=== PATIENT | male | born 1935 | race Caucasian/White ===

== ENCOUNTER 2018-01-01 01:22 | Inpatient (IN) | payer BC, MEDICARE ==
[~2018-01-01] VITALS: Ht 188 cm; Wt 85.7 kg
--- NOTE | 2018-01-01 01:25 | NUR ---
PT BBRA WITH C/O "SOB [id number]"; EXPIRATORY WHEEZES; BREATHING TX WET CHEMISTRY ANALYST." PT IS AAOX4. RESP EVEN AND NONE LABORED. SKIN PINK AND WARM. NO S/S OF ACUTE DISTRESS NOTED. VSS. WAITING MD FOR EVAL.
--- NOTE | 2018-01-01 01:25 | NUR ---
PT PLACED ON MONITOR AND POX. CALL LIGHT PLACED WITHIN REACH. PT'S FAMILY BEDSIDE
--- NOTE | 2018-01-01 02:00 | NUR ---
Patient is resting comfortably in bed with eyes closed. Easily aroused. VSS
[2018-01-01 02:46] LABS: BASOPHILS % (AUTO) 0.1 % (0.0-2.0); EOSINOPHILS # (AUTO) 0.2 /CMM (0.0-0.7); EOSINOPHILS % (AUTO) 1.2 % (0.0-6.0); HEMATOCRIT 50 % (39-51); HEMOGLOBIN 16.5 g/dL (13.5-17.5); LYMPHOCYTES # (AUTO) 0.6 /CMM (0.8-4.8); LYMPHOCYTES % (AUTO) 4.3 % (20.0-44.0); MEAN CORPUSCULAR HEMOGLOBIN 31 PG (26.0-33.0); MEAN CORPUSCULAR HGB CONC 33 g/dl (31.0-36.0); MEAN CORPUSCULAR VOLUME 93 fL (80-96); MONOCYTES # (AUTO) 0.1 /CMM (0.1-1.30); MONOCYTES % (AUTO) 0.9 % (2.0-12.0); NEUTROPHILS # (AUTO) 12.2 /CMM (1.8-8.9); NEUTROPHILS % (AUTO) 93.5 % (43.0-81.0); PLATELET COUNT (AUTO) 388 /CMM (150-450); RDW COEFFICIENT OF VARIATION 16.1 (11.5-15.0); RED BLOOD CELL COUNT(AUTO) 5.39 MIL/uL (4.5-6.0); WHITE BLOOD COUNT (AUTO) 13.1 K/uL (4.3-11.0)
--- NOTE | 2018-01-01 03:00 | NUR ---
Patient is resting comfortably in bed with eyes closed. Easily aroused. VSS
[2018-01-01 03:07] LABS: ALANINE AMINOTRANSFERASE 18 U/L (12-78); ALBUMIN 3.2 g/dL (3.4-5.0); ALKALINE PHOSPHATASE 72 U/L (46-116); ASPARTATE AMINOTRANSFERASE 16 U/L (15-37); BILIRUBIN,DIRECT 0.2 mg/dL (0.0-0.2); BILIRUBIN,TOTAL 1.1 mg/dL (0.2-1.0); CALCIUM, SERUM 8.8 mg/dL (8.5-10.1); CARBON DIOXIDE 27 mmol/L (21-32); CHLORIDE 108 mmol/L (98-107); CREATININE 0.9 mg/dL (0.6-1.3); GLUCOSE 118 mg/dL (74-106); MAGNESIUM 1.7 mg/dL (1.8-2.4); POTASSIUM 3.8 mmol/L (3.5-5.1); SODIUM SERUM 144 mmol/L (136-145); TOTAL PROTEIN, SERUM 6.1 g/dL (6.4-8.2); TROPONIN I < 0.017 ng/mL (0.00-0.056); UREA NITROGEN, BLOOD 17 mg/dL (7-18)
[2018-01-01 03:10] LABS: INR 1.12 (0.87-1.13)
[2018-01-01 03:17] LABS: BAND % (MANUAL) 10 % (0.0-5.0); EOSINOPHILS % (MANUAL) 1 % (0-4); LYMPHOCYTES % (MANUAL) 3 % (16-48); MONOCYTES % (MANUAL) 1 % (0-11.0); NEUTROPHILS % (MANUAL) 85 (42-76)
[2018-01-01 03:38] LABS: ABG BASE EXCESS 1.7 mmol/L; ABG OXYGEN SATURATION 94.8 % (92.0-98.5); ABG PCO2 34.7 mmHg (35.0-45.0); ABG PH 7.471 (7.350-7.450); ABG PO2 70.8 mmHg (75.0-100.0); AaDO2 203.4 mmHg; COHb 0.8 % (0.5-1.5); MetHb 0.5 % (0.0-1.5); O2Hb 93.6 % (94.0-97.0); SITE, ABG Right Brachial; VENT MODE, BG SIMPLE MASK
--- NOTE | 2018-01-01 03:55 | NUR ---
Patient is resting comfortably in bed with eyes closed. Easily aroused. VSS
[2018-01-01] MEDS ORDERED: CEFEPIME 1 GM in IV D5W 50 ML IV STA (04:31)
[2018-01-01] MEDS ORDERED: VANCOMYCIN 1 GM in IV NS 0.9% 250 ML IV STA (04:31)
--- NOTE | 2018-01-01 04:35 | NUR ---
PT ABLE TO GIVE URINE SPECIMEN, LAB CALLED FOR PICKUP
[2018-01-01] MEDS ORDERED: CEFEPIME 1 GM VIAL ONE (04:41)
[2018-01-01] MEDS ORDERED: VANCOMYCIN 1 GM VIAL ONE (04:41)
--- NOTE | 2018-01-01 05:05 | NUR ---
GAVE REPORT TO MACARIO VILLANUEVA FOR TRENT.
[2018-01-01] MEDS ORDERED: methylPREDNISolone SOD SUCC 125 MG/2ML VIAL IV ONE (05:30)
[2018-01-01 05:45] LABS: APPEARANCE,URINE CLEAR (CLEAR); BILIRUBIN,URINE NEGATIVE (NEGATIVE); BLOOD, URINE NEGATIVE Ery/uL (NEGATIVE); COLOR,URINE DARK YELLO (YELLOW); KETONES,URINE TRACE (NEGATIVE); LEUKOCYTE ESTERASE ,URINE NEGATIVE (NEGATIVE); NITRITE, URINE NEGATIVE (NEGATIVE); PH,URINE 5.5 (5.0-8.0); PROTEIN,URINE NEGATIVE (NEGATIVE); UGLUCOSE NEGATIVE (NEGATIVE); UROBILINOGEN,URINE 0.2 EU/dL (0.2)
[2018-01-01] MEDS ORDERED: methylPREDNISolone SOD SUCC 125 MG/2ML VIAL ONE (05:53)
[2018-01-01] MEDS ORDERED: Z GUARD REMEDY 2 OZ OINT TP PRN (06:00)
[2018-01-01] MEDS ORDERED: ACETAMINOPHEN 325 MG TABLET PO PRN (06:00)
[2018-01-01] MEDS ORDERED: CEFTRIAXONE 1 G in IV D5W 50 ML IV SCH (06:00)
[2018-01-01] MEDS ORDERED: HYDROCODONE/APAP 5/325MG 1 EACH TABLET PO PRN (06:00)
[2018-01-01] MEDS ORDERED: MAGNESIUM HYDROXIDE 30 ML UDC PO PRN (06:00)
[2018-01-01] MEDS ORDERED: ONDANSETRON HCL/PF 4 MG/2 ML VIAL IVP PRN (06:00)
[2018-01-01] MEDS ORDERED: AZITHROMYCIN 500 MG in IV D5W 250 ML IV SCH (06:00)
[2018-01-01] MEDS ORDERED: MAG HYDROX/AL HYDROX/SIMETH 30 ML UDC PO PRN (06:00)
--- NOTE | 2018-01-01 06:08 | NUR ---
GAVE REPORT TO ELIZADaniella GUILLAUME FOR TRENT.
[2018-01-01 06:30] VITALS: BP 131/63
--- NOTE | 2018-01-01 06:30 | NUR ---
RN ADMITTING ELIZA NOTE ADMITTED 82 YR OLD MALE, FROM ER REPORT GIVEN BY ANGIE. PT FROM HOME, C/C SOB X 15 MIN AND WHEEZING, ADMIT DIAGNOSIS PNA. PT AOX4 ON SIMPLE MASK @ 4L SAT @ 95%, DENIES ANY PAIN, AMBULATORY, NO SKIN ISSUES, WITH RAC 18G, ADMITTING ORDERS ENTERED BY LORENA Hall MERCHANDISING REPRESENTATIVE TRANSPORT TECHNICIAN, ASSESSMENT TO BE DONE BY AM SHIFT RN, ALL SAFETY MEASURES UNDER TAKEN CL WR. WILL ENDORSE FOR TRENT.
[2018-01-01 06:56] VITALS: BP 113/60
[2018-01-01 07:23] LABS: BACTERIA,URINE Few /HPF (None Seen); CALCIUM OXALATE CRYSTALS,UR Few /HPF (None Seen); RBC,URINE 0-2 /HPF (0-2); SQUAMOUS EPITHELIAL CELL,UR Few /HPF (None Seen); WBC,URINE 0-2 /HPF (0-3)
[2018-01-01 07:24] LABS: MUCUS,URINE Moderate /LPF (None Seen)
[2018-01-01] MEDS ORDERED: LATA2.5D7 EACHEYE (07:57)
[2018-01-01] MEDS ORDERED: TAMS-12 PO (07:57)
[2018-01-01] MEDS ORDERED: APIX5TAB PO (07:57)
[2018-01-01] MEDS ORDERED: LOSA100T15 PO (07:57)
[2018-01-01] MEDS ORDERED: FINA5TAB3 PO (07:57)
[2018-01-01] MEDS ORDERED: LOVA40TA2 PO (07:57)
[2018-01-01] MEDS ORDERED: HYDR500C2 PO (07:57)
[2018-01-01 08:00] VITALS: BP 112/62
[2018-01-01] MEDS: ALBUTEROL FS 2.5 MG/0.5 ML VIAL.NEB NEB SCH ×2 (08:03→13:07)
[2018-01-01] MEDS: IPRATROPIUM NEB FS 0.5 MG/2.5 ML AMPUL.NEB NEB SCH ×6 (08:04→22:59)
--- NOTE | 2018-01-01 08:07 | NUR ---
TD RN NOTES RECEIVED PT ON BED SLEEPING. ALERT ORIENTED X4. ON FACE MASK 4L SATURATING WELL. ON TELE MONITOR SR 77. IV ACCESS RA #18 RUNNING WELL. HEAD OF BED ELEVATED SIDE RAILS UP. CALL LIGHT WITHIN REACH. WILL CONTINUE TO MONITOR PT CLOSELY.
--- NOTE | 2018-01-01 08:50 | NUR ---
TD RN NOTES PHARMACY FOLLOWED UP REGARDING PATIENTS ANTIBIOTICS
[2018-01-01] MEDS: methylPREDNISolone SOD SUCC 40 MG/ML VIAL IV SCH ×3 (09:34→16:24)
[2018-01-01] MEDS: CEFTRIAXONE 1 G in IV D5W 50 ML IV SCH (10:09)
[2018-01-01] MEDS: AZITHROMYCIN 500 MG in IV D5W 250 ML IV SCH (10:59)
--- NOTE | 2018-01-01 11:41 | NUR ---
TD RN NOTES CALLED DR RODRIGUEZ FOR HOME MED RECON.
[2018-01-01 12:00] VITALS: BP 110/60
--- NOTE | 2018-01-01 12:15 | NUR ---
TD RN NOTES DR MOSQUEDA SEEN THE PT. NO FURTHER ORDERS
[2018-01-01] MEDS: Magnesium 1GM/D5W 100ML PREMIX 100 ML IV SCH ×2 (12:49→13:39)
[2018-01-01] MEDS ORDERED: ALBUTEROL HALF STRENGTH 1.25 MG/3 ML VIAL.NEB NEB SCH (13:00)
[2018-01-01] MEDS: ENOXAPARIN SODIUM 80 MG/0.8 ML DISP.SYRIN SQ SCH (13:40)
[2018-01-01] MEDS ORDERED: IOHEXOL-350 100 ML VIAL IV ONE (15:04)
[2018-01-01] MEDS ORDERED: CT SWABBABLE VALVE TRANS SET 1 EA INFUS.SET MC ONE (15:04)
[2018-01-01] MEDS ORDERED: IV NS 0.9% 100 ML IV ONE (15:04)
[2018-01-01] MEDS: ALBUTEROL HALF STRENGTH 1.25 MG/3 ML VIAL.NEB NEB SCH ×3 (15:26→22:59)
[2018-01-01 16:00] VITALS: BP 135/69
--- NOTE | 2018-01-01 18:44 | NUR ---
TD RN NOTES NO ACUTE CHANGES NOTED DURING THE SHIFT. PROVIDED COMFORT AND SAFETY. HEAD OF BED ELEVATED. DUE MEDS GIVEN.
[2018-01-01 20:00] VITALS: BP 129/73
--- NOTE | 2018-01-01 20:22 | NUR ---
RN NOTES RECEIVED PATIENT AWAKE IN BED WITH NO RESPIRATORY DISTRESS OR SHORTNESS OF BREATH. BREATHING EVEN AND UNLABORED. ALERT AND ORIENTED, VERBALLY ABLE TO COMMUNICATE NEEDS. NO COMPLAINT OF PAIN OR DISCOMFORT. ON O2 AT 6LPM VIA NC WELL TOLERATED. AMBULATORY. VITAL SIGNS WNL. KEPT CLEAN AND DRY. WILL CONTINUE TO MONITOR.
[2018-01-01] MEDS: LATANOPROST EYE DROP 0.005% 2.5 ML BOTTLE EACHEYE SCH (22:12)
[2018-01-01] MEDS: ATORVASTATIN 10 MG TABLET PO SCH (22:12)
[2018-01-02] VITALS: BP 119/54
[2018-01-02] MEDS: ENOXAPARIN SODIUM 80 MG/0.8 ML DISP.SYRIN SQ SCH ×2 (01:27→12:06)
[2018-01-02] MEDS: ALBUTEROL HALF STRENGTH 1.25 MG/3 ML VIAL.NEB NEB SCH ×6 (03:35→22:47)
[2018-01-02] MEDS: IPRATROPIUM NEB FS 0.5 MG/2.5 ML AMPUL.NEB NEB SCH ×6 (03:35→22:47)
[2018-01-02 04:00] VITALS: BP 117/64
[2018-01-02 06:34] LABS: HEMATOCRIT 49 % (39-51); HEMOGLOBIN 16.1 g/dL (13.5-17.5); LYMPHOCYTES # (AUTO) 0.4 /CMM (0.8-4.8); MEAN CORPUSCULAR HEMOGLOBIN 31 PG (26.0-33.0); MEAN CORPUSCULAR HGB CONC 33 g/dl (31.0-36.0); MEAN CORPUSCULAR VOLUME 93 fL (80-96); MONOCYTES # (AUTO) 0.3 /CMM (0.1-1.30); MONOCYTES % (AUTO) 1.5 % (2.0-12.0); NEUTROPHILS # (AUTO) 18.6 /CMM (1.8-8.9); NEUTROPHILS % (AUTO) 96.5 % (43.0-81.0); PLATELET COUNT (AUTO) 387 /CMM (150-450); RDW COEFFICIENT OF VARIATION 16.2 (11.5-15.0); RED BLOOD CELL COUNT(AUTO) 5.25 MIL/uL (4.5-6.0); WHITE BLOOD COUNT (AUTO) 19.2 K/uL (4.3-11.0)
[2018-01-02 06:53] LABS: CHOLESTEROL 123 mg/dL (<200); HDL CHOLESTEROL 50 mg/dL (40-60); LDL 70 mg/dL (0-99); THYROID STIMULATING HORMONE 0.371 uIU/mL (0.358-3.74); TRIGLYCERIDES 37 mg/dL (30-150)
[2018-01-02 06:58] LABS: CALCIUM, SERUM 8.8 mg/dL (8.5-10.1); CARBON DIOXIDE 32 mmol/L (21-32); CHLORIDE 108 mmol/L (98-107); GLUCOSE 148 mg/dL (74-106); MAGNESIUM 2.2 mg/dL (1.8-2.4); PHOSPHORUS 3.5 mg/dL (2.5-4.9); POTASSIUM 4.2 mmol/L (3.5-5.1); SODIUM SERUM 142 mmol/L (136-145); UREA NITROGEN, BLOOD 19 mg/dL (7-18)
--- NOTE | 2018-01-02 07:38 | NUR ---
CATRACHITA RN NOTES RECEIVED PATIENT AWAKE IN BED WITH NO RESPIRATORY DISTRESS OR SHORTNESS OF BREATH. BREATHING EVEN AND UNLABORED. ALERT AND ORIENTED, VERBALLY ABLE TO COMMUNICATE NEEDS. NO COMPLAINT OF PAIN OR DISCOMFORT. ON O2 AT 6LPM VIA NC WELL TOLERATED. SIGNS WNL. KEPT CLEAN AND DRY. WILL CONTINUE TO MONITOR. ON TELE MONITOR SR . LT UPPER ARM MID LINE IN PLACE , RT FA HL INTACT , BED IN LOWEST AND LOCKED POSITION , PLAN OF CARE DISCUSSED WITH PATIENT
[2018-01-02 08:00] VITALS: BP 149/79
[2018-01-02] MEDS: TAMSULOSIN 0.4 MG CAP.SR.24H PO SCH (08:05)
[2018-01-02] MEDS: methylPREDNISolone SOD SUCC 40 MG/ML VIAL IV SCH ×3 (08:05→16:26)
[2018-01-02] MEDS: LOSARTAN POTASSIUM 50 MG TABLET PO SCH (08:06)
[2018-01-02] MEDS: FINASTERIDE (5 MG) 5 MG TABLET PO SCH (08:06)
[2018-01-02] MEDS: HYDROXYUREA 500 MG CAPSULE PO SCH (08:06)
--- NOTE | 2018-01-02 08:55 | NUR ---
ELIZA RN NOTE CHEST X RAY DONE , NOT IN ACUTE DISTRESS, WILL CONT TO MONITOR CLOSELY
[2018-01-02] MEDS: CEFTRIAXONE 1 G in IV D5W 50 ML IV SCH (09:16)
[2018-01-02 10:48] LABS: LYMPHOCYTES % (MANUAL) 3 % (16-48); MONOCYTES % (MANUAL) 2 % (0-11.0); NEUTROPHILS % (MANUAL) 95 (42-76)
--- NOTE | 2018-01-02 10:54 | NUR ---
ELIZA RN NOTE ON BREATHING TX ORDERED
[2018-01-02] MEDS: AZITHROMYCIN 500 MG in IV D5W 250 ML IV SCH (11:10)
[2018-01-02 12:00] VITALS: BP 156/72
--- NOTE | 2018-01-02 12:16 | NUR ---
ATHLETIC EVENTS SCORER NOTE TRANSFERRED TO ROOM 108 PER CHARGE NURSE ORDER
--- NOTE | 2018-01-02 14:31 | NUR ---
CLINICAL BIOCHEMIST NOTE RESTING COMFORTABLY IN BED, ALL NEEDS ATTENDED, NOT IN ACUTE DISTRESS, WILL CONT TO MONITOR CLOSELY
[2018-01-02 16:00] VITALS: BP 152/81
--- NOTE | 2018-01-02 17:53 | NUR ---
LANDFILL GRADER NOTE DR RODRIGUEZ AT BEDSIDE , SEEING PATIENT , ALL NEEDS ATTENDED, WILL CONT TO MONITOR CLOSELY
--- NOTE | 2018-01-02 18:38 | NUR ---
4TH GRADE TEACHER NOTE HAVING DINNER, DAUGHTER AT BEDSIDE , ALL NEEDS ATTENDED, WILL CONT TO MONITOR CLOSELY
--- NOTE | 2018-01-02 19:30 | NUR ---
RN OPENING NOTES RECEIVED REPORT FROM DAYSHIFT RN. FOUND Pt AWAKE, RESTING IN BED. NO S/S OF ACUTE DISTRESS OR SOB NOTED. Pt IS A/OX4, VERBAL, ABLE TO MAKE NEEDS KNOWN. Pt C/O NO PAIN AT THIS TIME. IV ACCESS ON DAVID MIDLINE & RA #18G, SL. SAFETY MEASURES IN PLACE. BED LOW, LOCKED, HOB ELEVATED SIDE RAILS UP, CALL LIGHT AND BEDSIDE TABLE WITHIN REACH. WILL CONTINUE TO MONITOR Pt THROUGHOUT THE NIGHT FOR SAFETY.
[2018-01-02 20:00] VITALS: BP 167/85
[2018-01-02] MEDS: LATANOPROST EYE DROP 0.005% 2.5 ML BOTTLE EACHEYE SCH (21:52)
[2018-01-02] MEDS: ATORVASTATIN 10 MG TABLET PO SCH (21:52)
[2018-01-03] VITALS (7 sets, daily range): BP systolic 138–160; BP diastolic 71–83
[2018-01-03] MEDS: ENOXAPARIN SODIUM 80 MG/0.8 ML DISP.SYRIN SQ SCH (00:25)
[2018-01-03] MEDS: IPRATROPIUM NEB FS 0.5 MG/2.5 ML AMPUL.NEB NEB SCH ×6 (02:34→23:38)
[2018-01-03] MEDS: ALBUTEROL HALF STRENGTH 1.25 MG/3 ML VIAL.NEB NEB SCH ×6 (02:34→23:38)
--- NOTE | 2018-01-03 06:35 | NUR ---
RN CLOSING NOTES NO SIGNIFICANT CHANGES IN Pt's CONDITION. Pt REMAINS STABLE AT THIS TIME. NO S/S OF ACUTE DISTRESS OR SOB NOTED. TELE READING SR. ALL NEEDS MET AND ATTENDED TO. SAFETY MEASURES IN PLACE. WILL ENDORSE TO DAYSHIFT RN FOR Pt's TRENT.
[2018-01-03 06:53] LABS: BASOPHILS % (AUTO) 0.2 % (0.0-2.0); HEMATOCRIT 49 % (39-51); HEMOGLOBIN 16.1 g/dL (13.5-17.5); LYMPHOCYTES # (AUTO) 0.5 /CMM (0.8-4.8); LYMPHOCYTES % (AUTO) 2.7 % (20.0-44.0); MEAN CORPUSCULAR HEMOGLOBIN 31 PG (26.0-33.0); MEAN CORPUSCULAR HGB CONC 33 g/dl (31.0-36.0); MEAN CORPUSCULAR VOLUME 93 fL (80-96); MONOCYTES # (AUTO) 0.4 /CMM (0.1-1.30); MONOCYTES % (AUTO) 2.3 % (2.0-12.0); NEUTROPHILS # (AUTO) 18.4 /CMM (1.8-8.9); NEUTROPHILS % (AUTO) 94.8 % (43.0-81.0); PLATELET COUNT (AUTO) 390 /CMM (150-450); RED BLOOD CELL COUNT(AUTO) 5.27 MIL/uL (4.5-6.0); WHITE BLOOD COUNT (AUTO) 19.4 K/uL (4.3-11.0)
--- NOTE | 2018-01-03 07:28 | NUR ---
MS/RN Patient received Patient received from night coordinator. A/X X4, appears in no distress, currently receiving HHN, saturation 95%. Denies any pain or discomfort. Call light within reach, side rails X2 in upright position, brakes locked. Will continue to monitor and ensure safety.
[2018-01-03 07:47] LABS: CALCIUM, SERUM 8.5 mg/dL (8.5-10.1); CARBON DIOXIDE 27 mmol/L (21-32); CHLORIDE 109 mmol/L (98-107); CREATININE 0.9 mg/dL (0.6-1.3); GLUCOSE 116 mg/dL (74-106); MAGNESIUM 2.1 mg/dL (1.8-2.4); PHOSPHORUS 3.8 mg/dL (2.5-4.9); POTASSIUM 4.5 mmol/L (3.5-5.1); SODIUM SERUM 143 mmol/L (136-145); UREA NITROGEN, BLOOD 22 mg/dL (7-18)
[2018-01-03] MEDS: HYDROXYUREA 500 MG CAPSULE PO SCH (08:05)
[2018-01-03] MEDS: FINASTERIDE (5 MG) 5 MG TABLET PO SCH (08:05)
[2018-01-03] MEDS: TAMSULOSIN 0.4 MG CAP.SR.24H PO SCH (08:05)
[2018-01-03] MEDS: methylPREDNISolone SOD SUCC 40 MG/ML VIAL IV SCH ×3 (08:06→16:34)
[2018-01-03] MEDS: LOSARTAN POTASSIUM 50 MG TABLET PO SCH (08:07)
[2018-01-03 08:58] LABS: LYMPHOCYTES % (MANUAL) 3 % (16-48); MONOCYTES % (MANUAL) 2 % (0-11.0); NEUTROPHILS % (MANUAL) 95 (42-76)
--- NOTE | 2018-01-03 09:00 | NUR ---
MS/RN Medications Medications administered as ordered, no problems swallowing.
--- NOTE | 2018-01-03 09:27 | NUR ---
MS/RN Labs Morning labs reviewed: -WBC 19.4
[2018-01-03] MEDS: CEFTRIAXONE 1 G in IV D5W 50 ML IV SCH (10:20)
--- NOTE | 2018-01-03 11:05 | NUR ---
MS/RN S/B Dr Cox Seen by Dr Cox - oxygen to be titrated, labs ordered for tomorrow.
[2018-01-03] MEDS: AZITHROMYCIN 500 MG in IV D5W 250 ML IV SCH (11:17)
[2018-01-03] MEDS: APIXABAN 5 MG TABLET PO SCH ×2 (11:33→16:34)
--- NOTE | 2018-01-03 14:47 | NUR ---
MS/RN S/B Dr Rueda Seen by Dr Rueda - titrate oxygen when able, encourage to ambulate.
--- NOTE | 2018-01-03 17:26 | NUR ---
MS/RN Rounds Patient kept up to date with plan of care. Time allowed to answer all questions and address all concerns.
--- NOTE | 2018-01-03 18:18 | NUR ---
MS/RN End note No changes in care at this time, all needs attended. No shortness of breath, saturation has remained greater than 94% throughout the shift. All needs attended, will endorse to shift supervisor melting.
--- NOTE | 2018-01-03 20:20 | NUR ---
TELE/RN NOTES RECEIVED REPORT FROM KAHLIL GOLDBERG. RECEIVED PT. LYING IN BED RESTING. PT. IS EASILY AROUSABLE TO NAME. AWAKE, ALERT AND ORIENTED X4. BREATHING EVEN AND UNLABORED ON 4LPM O2 VIA NC. NO SOB, RESPIRATORY DISTRESS OR COMPLAINTS OF PAIN NOTED AT THIS TIME. PT. WITH EXTERNAL PRODUCTION SUPPORT CONSULTANT PRESENT AND INTACT. CURRENT RHYTHM = SINUS RHYTHM HR 75. PT. WITH LEFT HAND 20 GAUGE IV SALINE LOCK PRESENT, PATENT AND INTACT. PT. WITH RIGHT FOREARM IV SALINE LOCK PRESENT, PATENT AND INTACT. BED LOCKED AND IN LOWEST POSITION, SIDE RAILS UP X2, CALL LIGHT WITHIN REACH, WILL CONTINUE TO MONITOR.
[2018-01-03] MEDS: ATORVASTATIN 10 MG TABLET PO SCH (22:12)
[2018-01-03] MEDS: LATANOPROST EYE DROP 0.005% 2.5 ML BOTTLE EACHEYE SCH (22:17)
[2018-01-04] VITALS (7 sets, daily range): BP systolic 133–169; BP diastolic 79–89
[2018-01-04] MEDS: ALBUTEROL HALF STRENGTH 1.25 MG/3 ML VIAL.NEB NEB SCH ×6 (03:31→23:48)
[2018-01-04] MEDS: IPRATROPIUM NEB FS 0.5 MG/2.5 ML AMPUL.NEB NEB SCH ×6 (03:31→23:48)
[2018-01-04 06:44] LABS: CALCIUM, SERUM 8.6 mg/dL (8.5-10.1); CARBON DIOXIDE 29 mmol/L (21-32); CHLORIDE 108 mmol/L (98-107); CREATININE 0.9 mg/dL (0.6-1.3); GLUCOSE 121 mg/dL (74-106); MAGNESIUM 1.9 mg/dL (1.8-2.4); PHOSPHORUS 3.7 mg/dL (2.5-4.9); POTASSIUM 4.3 mmol/L (3.5-5.1); SODIUM SERUM 144 mmol/L (136-145); UREA NITROGEN, BLOOD 23 mg/dL (7-18)
--- NOTE | 2018-01-04 08:00 | NUR ---
RN NOTE:(INITIAL) PATIENT RECEIVED ALERT AWAKE ORIENTED X4. ON 4LPM OXYGEN, DENIES SHORTNESS OF BREATH. ON TELE MONITOR SINUS RHYTHM. DENIES CHEST PAIN & DISCOMFORT. IV SITE INTACT, SALINE LOCK. SAFETY MEASURES OBSERVED. CALL LIGHT WITHIN REACH. WILL CONTINUE TO MONITOR.
[2018-01-04] MEDS: HYDROXYUREA 500 MG CAPSULE PO SCH (08:29)
[2018-01-04] MEDS: FINASTERIDE (5 MG) 5 MG TABLET PO SCH (08:29)
[2018-01-04] MEDS: methylPREDNISolone SOD SUCC 40 MG/ML VIAL IV SCH ×3 (08:29→17:08)
[2018-01-04] MEDS: TAMSULOSIN 0.4 MG CAP.SR.24H PO SCH (08:30)
[2018-01-04] MEDS: APIXABAN 5 MG TABLET PO SCH ×2 (08:30→17:08)
[2018-01-04] MEDS: LOSARTAN POTASSIUM 50 MG TABLET PO SCH (08:31)
[2018-01-04] MEDS: CEFTRIAXONE 1 G in IV D5W 50 ML IV SCH (09:24)
[2018-01-04 10:26] LABS: ABG BASE EXCESS 1.2 mmol/L; ABG OXYGEN SATURATION 92.1 % (92.0-98.5); ABG PH 7.438 (7.350-7.450); ABG PO2 61.8 mmHg (75.0-100.0); COHb 0.4 % (0.5-1.5); MetHb 0.5 % (0.0-1.5); O2Hb 91.3 % (94.0-97.0); SITE, ABG Right Radial; VENT MODE, BG n/c 2 L
--- NOTE | 2018-01-04 10:30 | NUR ---
RN NOTE: 1000:SEEN BY DR. MOSQUEDA AT BEDSIDE, RECEIVED ORDERS TO TITRATE O2 TO 2LPM, MONITOR SPO2. 10:25: RECEIVED ABG RESULTS PO2 61.8MMHG ON 2LPM O2 VIA NC. , RELAYED RESULTS TO DR. MOSQUEDA, NO NEW ORDERS RECEIVED. CONTINUE TO ON 2LPM O2. CONTINUE TO MONITOR CLOSELY.
[2018-01-04] MEDS: AZITHROMYCIN 500 MG in IV D5W 250 ML IV SCH (11:19)
--- NOTE | 2018-01-04 16:06 | NUR ---
RN NOTE: (SBP >160) JESSICA N.P. AWARE ABOUT SBP REMAINS >160 DURING SHIFT, NO NEW ORDERS. CONTINUE TO MONITOR.
--- NOTE | 2018-01-04 19:40 | NUR ---
REGISTER IN CHANCERY OPENING NOTES RECEIVED PT IN BED AWAKE, ALERT, VERBALLY RESPONSIVE. ON O2 VIA N/C AT 2L/MIN, RESPIRATIONS EVEN, UNLABORED, NO APPARENT DISTRESS NOTED. SR 84. DENIES ANY PAIN OR DISCOMFORT AT THIS TIME. CALL LIGHT WITHIN REACH. ATTENDED ALL NEEDS WILL CONTINUE TO MONITOR ACCORDINGLY.
[2018-01-04] MEDS: ATORVASTATIN 10 MG TABLET PO SCH (21:12)
[2018-01-04] MEDS: LATANOPROST EYE DROP 0.005% 2.5 ML BOTTLE EACHEYE SCH (21:13)
[2018-01-05] VITALS (8 sets, daily range): BP systolic 124–150; BP diastolic 64–84
[2018-01-05] MEDS: IPRATROPIUM NEB FS 0.5 MG/2.5 ML AMPUL.NEB NEB SCH ×6 (03:18→23:11)
[2018-01-05] MEDS: ALBUTEROL HALF STRENGTH 1.25 MG/3 ML VIAL.NEB NEB SCH ×6 (03:18→23:11)
--- NOTE | 2018-01-05 06:57 | NUR ---
DRIVER LICENSE REVIEWING OFFICER CLOSING NOTES PT IN BED, RESTING COMFORTABLY, ON O2 VIA N/C, RESPIRATIONS EVEN, UNLABORED. CALL LIGHT WITHIN REACH. DENIES ANY PAIN OR DISCOMFORT.ATTENDED ALL NEEDS.WILL CONTINUE TO MONITOR ACCORDINGLY.
[2018-01-05 07:01] LABS: HEMATOCRIT 50 % (39-51); HEMOGLOBIN 16.7 g/dL (13.5-17.5); LYMPHOCYTES # (AUTO) 0.4 /CMM (0.8-4.8); LYMPHOCYTES % (AUTO) 2.4 % (20.0-44.0); MEAN CORPUSCULAR HEMOGLOBIN 31 PG (26.0-33.0); MEAN CORPUSCULAR HGB CONC 33 g/dl (31.0-36.0); MEAN CORPUSCULAR VOLUME 94 fL (80-96); MONOCYTES # (AUTO) 0.3 /CMM (0.1-1.30); MONOCYTES % (AUTO) 2.1 % (2.0-12.0); NEUTROPHILS # (AUTO) 14.5 /CMM (1.8-8.9); NEUTROPHILS % (AUTO) 95.5 % (43.0-81.0); PLATELET COUNT (AUTO) 340 /CMM (150-450); RDW COEFFICIENT OF VARIATION 16.8 (11.5-15.0); RED BLOOD CELL COUNT(AUTO) 5.34 MIL/uL (4.5-6.0); WHITE BLOOD COUNT (AUTO) 15.2 K/uL (4.3-11.0)
[2018-01-05 07:23] LABS: CALCIUM, SERUM 8.8 mg/dL (8.5-10.1); CARBON DIOXIDE 29 mmol/L (21-32); CHLORIDE 109 mmol/L (98-107); CREATININE 0.9 mg/dL (0.6-1.3); GLUCOSE 124 mg/dL (74-106); POTASSIUM 4.1 mmol/L (3.5-5.1); SODIUM SERUM 145 mmol/L (136-145); UREA NITROGEN, BLOOD 28 mg/dL (7-18)
--- NOTE | 2018-01-05 07:30 | NUR ---
WEBSITE ADMIN NOTES RECEIVED PT ON BED SLEEPING. ALERT ORIENTED X4. ON NASAL CANNULA 2LPM SATURATING WELL. NO SIGN OF RESPI DISTRESS. ON TELE MONITOR SR 60. IV ACCESS ON LEFT HAND #20 SL NO REDNESS OR SWELLING. HEAD OF BED ELEVATED. SIDE RAILS UP. CALL LIGHT WITHIN REACH. WILL MONITOR PT CLOSELY.
[2018-01-05] MEDS: methylPREDNISolone SOD SUCC 40 MG/ML VIAL IV SCH ×2 (09:03→16:04)
[2018-01-05] MEDS: TAMSULOSIN 0.4 MG CAP.SR.24H PO SCH (09:04)
[2018-01-05] MEDS: FINASTERIDE (5 MG) 5 MG TABLET PO SCH (09:04)
[2018-01-05] MEDS: CEFTRIAXONE 1 G in IV D5W 50 ML IV SCH (09:04)
[2018-01-05] MEDS: LOSARTAN POTASSIUM 50 MG TABLET PO SCH (09:04)
[2018-01-05] MEDS: APIXABAN 5 MG TABLET PO SCH ×2 (09:04→16:04)
[2018-01-05] MEDS: HYDROXYUREA 500 MG CAPSULE PO SCH (09:04)
[2018-01-05 09:22] LABS: LYMPHOCYTES % (MANUAL) 2 % (16-48); MONOCYTES % (MANUAL) 5 % (0-11.0); NEUTROPHILS % (MANUAL) 93 (42-76)
[2018-01-05] MEDS: AZITHROMYCIN 500 MG in IV D5W 250 ML IV SCH (10:14)
--- NOTE | 2018-01-05 18:19 | NUR ---
MS RN NOTES NO ACUTE CHANGES NOTED DURING SHIFT. DUE MEDS GIVEN. PROVIDED COMFORT AND SAFETY. WILL ENDORSE TO THE PM NURSE FOR TRENT.
[2018-01-05] MEDS: LATANOPROST EYE DROP 0.005% 2.5 ML BOTTLE EACHEYE SCH (21:12)
[2018-01-05] MEDS: ATORVASTATIN 10 MG TABLET PO SCH (21:12)
[2018-01-06] VITALS: BP 124/64
[2018-01-06 00:35] VITALS: BP 139/64
[2018-01-06] MEDS: IPRATROPIUM NEB FS 0.5 MG/2.5 ML AMPUL.NEB NEB SCH ×4 (03:16→15:23)
[2018-01-06] MEDS: ALBUTEROL HALF STRENGTH 1.25 MG/3 ML VIAL.NEB NEB SCH ×4 (03:17→15:23)
[2018-01-06 04:00] VITALS: BP 157/82
--- NOTE | 2018-01-06 06:16 | NUR ---
MS RN CLOSING NOTES PT IN BED, ALERT ET ORIENTED. RESPIRATIONS EVEN ET UNLABORED. VITAL SIGNS TABLE, AFEBRILE..RESTING COMFORTABLY, NO APPARENT DISTRESS NOTED. WITH 2 UV HEPLOCK. ADMINISTERED ALL MEDS ORDERED. DENIES PAIN OR DISCOMFORT THE ENTIRE SHIFT. CALL LIGHT WITHIN REACH. KEPT CLEAN AND COMFORTABLE, NEEDS ALL ATTENDED. WILL ENDORSE ACCORDINGLY FOR CONTINUITY OF CARE.
[2018-01-06 08:00] VITALS: BP 170/85
[2018-01-06] MEDS: TAMSULOSIN 0.4 MG CAP.SR.24H PO SCH (08:27)
[2018-01-06] MEDS: HYDROXYUREA 500 MG CAPSULE PO SCH (08:27)
[2018-01-06] MEDS: LOSARTAN POTASSIUM 50 MG TABLET PO SCH (08:27)
[2018-01-06] MEDS: APIXABAN 5 MG TABLET PO SCH (08:28)
[2018-01-06] MEDS: FINASTERIDE (5 MG) 5 MG TABLET PO SCH (08:28)
[2018-01-06] MEDS ORDERED: methylPREDNISolone SOD SUCC 40 MG/ML VIAL IV SCH (09:00)
[2018-01-06] MEDS: CEFTRIAXONE 1 G in IV D5W 50 ML IV SCH (10:17)
[2018-01-06] MEDS: AZITHROMYCIN 500 MG in IV D5W 250 ML IV SCH (11:53)
[2018-01-06 16:00] VITALS: BP 145/85
--- NOTE | 2018-01-06 17:07 | NUR ---
inspector eyeglass frames note rn reviewed discharge paperwork with patient and daughter , rn explained f/u appointments with pcp and bath attendant md childs, patient and family verbalized understanding rn attempted to call in prescriptions to [facility]. rn awaiting authorization from pharmacy patient sent with hard copys of prescription. patient bilateral wrist iv removed without isues , no sob noted at this time patient, discharged without issues
== END 2018-01-06 17:34 | disposition home or self-care (01) | DRG 840 ==
LOC: ER 01:27 → TELE 03:12 → TELE-TD 06:26 → TELE1 01-02 11:50 → MEDSG1 01-05 10:08
PROVIDERS: ADMIT Nurse Practitioner Acute Care; ATTEND Nurse Practitioner Acute Care
DX: C94.6 Myelodysplastic disease, not elsewhere classified (principal); I26.99 Other pulmonary embolism without acute cor pulmonale; J96.21 Acute and chronic respiratory failure with hypoxia; E44.0 Moderate protein-calorie malnutrition; Z92.21 Personal history of antineoplastic chemotherapy; Z87.891 Personal history of nicotine dependence; Z86.718 Personal history of other venous thrombosis and embolism; Z86.711 Personal history of pulmonary embolism; Z85.51 Personal history of malignant neoplasm of bladder; Z79.01 Long term (current) use of anticoagulants; Z79.899 Other long term (current) drug therapy; T38.0X5A Adverse effect of glucocorticoids and synthetic analogues, initial encounter; Y92.009 Unspecified place in unspecified non-institutional (private) residence as the place of occurrence of the external cause; K21.9 Gastro-esophageal reflux disease without esophagitis; N40.0 Benign prostatic hyperplasia without lower urinary tract symptoms; K80.20 Calculus of gallbladder without cholecystitis without obstruction; E78.5 Hyperlipidemia, unspecified; E83.42 Hypomagnesemia; I10 Essential (primary) hypertension; I25.10 Atherosclerotic heart disease of native coronary artery without angina pectoris; J43.9 Emphysema, unspecified; I70.0 Atherosclerosis of aorta; J20.9 Acute bronchitis, unspecified
CPT/HCPCS: 36415; 36600; 71045-TC; 80048-TC; 80061-TC; 80076-TC; 81000-TC; 82803-TC; 83605-TC; 83735-TC; 84100-TC; 84443-TC; 84484-TC; 85025-TC; 85730-TC; 87040-TC; 87081-TC; 87086-TC; 93307-TC; 93970-TC; 94762-TC; 94799-TC; A4606; J0456; J0692; J0696; J1650; J2920; J2930; J3370; J3475; J7030; J7050; J7060; Q9967; Z7610

== ENCOUNTER 2019-02-26 22:54 | Inpatient (IN) | payer BC, MEDICARE ==
[2019-02-25 04:00] VITALS: BP 96/44
[~2019-02-26] VITALS: Ht 172.7 cm; Wt 88.0 kg
[2019-02-26 04:00] VITALS: BP 96/44
[~2019-02-26 22:54] MED LIST: APIX5TAB PO; FINA5TAB3 PO; HYDR500C2 PO; LATA2.5D7 EACHEYE; LOSA100T31 PO; LOVA40TA2 PO; TAMS-12 PO
--- NOTE | 2019-02-26 23:02 | NUR ---
PT MILES FROM HOME C/O SOB X1 HR. PT REC'D BREATHING TREATMENT EN ROUTE, MILD RELIEF. O2 SAT 88% ROOM AIR, PLACED ON 4L NC O2 SAT 94%. PT AAOX4. NOTED TACHYCARDIA, MD AWARE. SKIN WARM AND INTACT. NO ACUTE DISTRESS NOTED AT THIS TIME. PLACED IN GOWN AND ON CONTINUOUS FREIGHT WEIGHER AND PULSE OX. WILL CONTINUE TO MONITOR.
--- NOTE | 2019-02-26 23:16 | NUR ---
MD AT BEDSIDE FOR EVALUATION
[2019-02-26] MEDS ORDERED: IV NS 0.9% 500 ML BAG IV ONE (23:30)
--- NOTE | 2019-02-26 23:36 | NUR ---
RADIOLOGY AT BEDSIDE FOR CXR
--- NOTE | 2019-02-26 23:37 | NUR ---
Alfred leung in [facility] - 02/26/19 at 2354 by ELICEO RADIOLOGY AT BEDSIDE FOR CXR
[2019-02-26 23:41] LABS: BASOPHILS % (AUTO) 0.4 % (0.0-2.0); HEMATOCRIT 50 % (39-51); HEMOGLOBIN 16.2 g/dL (13.5-17.5); LYMPHOCYTES # (AUTO) 0.8 /CMM (0.8-4.8); LYMPHOCYTES % (AUTO) 7.4 % (20.0-44.0); MEAN CORPUSCULAR HGB CONC 33 g/dl (31.0-36.0); MEAN CORPUSCULAR VOLUME 108 fL (80-96); MONOCYTES # (AUTO) 0.1 /CMM (0.1-1.30); MONOCYTES % (AUTO) 0.5 % (2.0-12.0); NEUTROPHILS # (AUTO) 10.4 /CMM (1.8-8.9); NEUTROPHILS % (AUTO) 90.7 % (43.0-81.0); PLATELET COUNT (AUTO) 383 /CMM (150-450); WHITE BLOOD COUNT (AUTO) 11.4 K/uL (4.3-11.0)
[2019-02-26] MEDS ORDERED: ACETAMINOPHEN ES 500 MG TABLET ONE (23:45)
[2019-02-26 23:53] LABS: CALCIUM, SERUM 8.6 mg/dL (8.5-10.1); CARBON DIOXIDE 31 mmol/L (21-32); CHLORIDE 107 mmol/L (98-107); CREATININE 1.3 mg/dL (0.6-1.3); GLUCOSE 126 mg/dL (74-106); POTASSIUM 3.9 mmol/L (3.5-5.1); SODIUM SERUM 144 mmol/L (136-145); UREA NITROGEN, BLOOD 18 mg/dL (7-18)
[2019-02-26 23:54] LABS: ABG BASE EXCESS -3.9 mmol/L; ABG OXYGEN SATURATION 87.9 % (92.0-98.5); ABG PCO2 25.9 mmHg (35.0-45.0); ABG PO2 51.4 mmHg (75.0-100.0); AaDO2 162.1 mmHg; COHb 0.6 % (0.5-1.5); MetHb 0.4 % (0.0-1.5); SITE, ABG Right Radial
--- NOTE | 2019-02-26 23:54 | NUR ---
FLU SWAB COLLECTED, CALLED LAB FOR PICKUP
[2019-02-27] MEDS ORDERED: ACETAMINOPHEN 325 MG TABLET PO ONE
--- NOTE | 2019-02-27 00:01 | NUR ---
FAITH (DAUGHTER) CONTACT INFORMATION: LORENA (SON) CONTACT INFORMATION:
--- NOTE | 2019-02-27 00:01 | NUR ---
RT AT BEDSIDE
--- NOTE | 2019-02-27 00:02 | NUR ---
PT UNABLE TO PROVIDE URINE SAMPLE AT THIS TIME. MD PEREZ
[2019-02-27 00:06] LABS: ALANINE AMINOTRANSFERASE 23 U/L (12-78); ALBUMIN 3.4 g/dL (3.4-5.0); ALKALINE PHOSPHATASE 102 U/L (46-116); ASPARTATE AMINOTRANSFERASE 19 U/L (15-37); B-TYPE NATRIURETIC PEPTIDE 167 PG/ML (0-125); BILIRUBIN,DIRECT 0.2 mg/dL (0.0-0.2); BILIRUBIN,TOTAL 0.6 mg/dL (0.2-1.0); TOTAL PROTEIN, SERUM 6.8 g/dL (6.4-8.2)
--- NOTE | 2019-02-27 00:15 | NUR ---
PT UNABLE TO PROVIDE URINE SAMPLE AT THIS TIME. MD AWARE. PER VERBAL MD ORDER, WILL ADMINISTER MAXIPIME 2G IV NOW BEFORE URINE.
[2019-02-27] MEDS ORDERED: IV NS 0.9% 1,000 ML BAG IV ONE ×2 (00:30)
[2019-02-27] MEDS ORDERED: CEFEPIME 1 GM VIAL IV ONE (00:30)
[2019-02-27] MEDS ORDERED: CEFEPIME 1 GM VIAL ONE (00:35)
--- NOTE | 2019-02-27 00:35 | NUR ---
CALLED HOUSE SUP FOR ELIZA BED
--- NOTE | 2019-02-27 00:37 | NUR ---
ELIZA 111-1
--- NOTE | 2019-02-27 00:43 | NUR ---
BED CHANGED FROM 111-1 TO 114-2 ELIZA
[2019-02-27] MEDS ORDERED: HYDROCODONE/APAP 5/325MG 1 EACH TABLET PO PRN (01:30)
[2019-02-27] MEDS ORDERED: ALBUTEROL FS 2.5 MG/0.5 ML VIAL.NEB NEB PRN (01:30)
[2019-02-27] MEDS ORDERED: ACETAMINOPHEN 325 MG TABLET PO PRN (01:30)
[2019-02-27] MEDS ORDERED: MAGNESIUM HYDROXIDE 30 ML UDC PO PRN (01:30)
[2019-02-27] MEDS ORDERED: IPRATROPIUM NEB FS 0.5 MG/2.5 ML AMPUL.NEB NEB PRN (01:30)
[2019-02-27] MEDS ORDERED: ZOLPIDEM TARTRATE 5 MG TABLET PO PRN (01:30)
[2019-02-27] MEDS ORDERED: ONDANSETRON HCL/PF 4 MG/2 ML VIAL IVP PRN (01:30)
--- NOTE | 2019-02-27 01:43 | NUR ---
PT UNABLE TO PROVIDE URINE SAMPLE AT THIS TIME. MD PEREZ
--- NOTE | 2019-02-27 01:45 | NUR ---
UNARMED SECURITY OFFICER AT BEDSIDE FOR LACTIC REDRAW
--- NOTE | 2019-02-27 01:55 | NUR ---
GAVE REPORT TO YSABEL GUILLORY FOR TRENT
[2019-02-27] MEDS ORDERED: VANCOMYCIN 1 GM in IV D5W 250 ML IV ONE (02:00)
[2019-02-27] MEDS ORDERED: LOSARTAN POTASSIUM 50 MG TABLET PO ONE (02:00)
--- NOTE | 2019-02-27 02:12 | NUR ---
PT TRANSFERRED PER ACLS PROTOCOL
--- NOTE | 2019-02-27 02:15 | NUR ---
LENDING CONSULTANT NOTES, RECEIVED 83 YEAR OLD MALE ADMITTED FROM ER DEPARTMENT VIA STRETCHER ACCOMPANIED BY 2 NURSES, NO SOB/ACUTE DISTRESS NOTED AT THIS TIME, UNDER MEDICAL SERVICES RICKY MARTINEZ MARBLEIZING MACHINE TENDER WITH ADMITTING DX SEPSIS, H/O COPD, RECENTLY DIAGNOSED WITH PNA,H/O PE, LEFT KNEE DVT, BLADDER CA, HTN, HLD, BPH, ANEMIA, FORMER SMOKER, PATIENT A/O X4 ABLE TO VERBALIZED NEEDS AND CONCERNS, ON 4LMP VIA NC WITH O2 SAT LEVEL 91%, 98.2, 91/57, 94, SINUS RHYTHM IN TELE MONITOR AMBULATORY WITH ASSISTANCE, SACRAL REDNESS NOTED, AFEBRILE AT THIS TIME, RIGHT FORE ARM IV ACCESS 20G, WILL F/U WITH MD FOR FURTHER ORDERS, ALL NEEDS PROVIDED, BED LOCKED AND IN LOWEST POSITION, ORIENTED TO ROOM AND TO USE CALL LIGHT FOR ASSISTANCE, WILL CONTINUE TO MONITOR CLOSELY.
[2019-02-27] MEDS: IV NS 0.9% 1,000 ML IV PRN ×2 (02:30→17:03)
[2019-02-27 02:36] VITALS: BP 91/57
[2019-02-27] MEDS ORDERED: VANCOMYCIN 1 GM VIAL ONE (02:42)
[2019-02-27 04:00] VITALS: BP_SYST 95; BP_SYST 96; BP_DIAS 44; BP_DIAS 45
--- NOTE | 2019-02-27 06:50 | NUR ---
RN NOTES, PATIENT SLEEPING AT THIS TIME, BREATHING EVEN AND UNLABORED, NO SOB/ACUTE DISTRESS NOTED AT THIS TIME, , ON 4LMP VIA NC WITH O2 SAT LEVEL >91%, SINUS RHYTHM IN TELE MONITOR RIGHT FORE ARM IV ACCESS 20G, ALL NEEDS PROVIDED, BED LOCKED AND IN LOWEST POSITION, TO SIGNIFICANT CHANGE IN CONDITION DURING THE REST OF THE SHIFT, CALL LIGHT W/I REACH, WILL ENDORSE CONTINUITY OF CARE TO ONCOMING NURSE.
[2019-02-27 07:02] LABS: BASOPHILS # (AUTO) 0.1 /CMM (0.0-0.2); BASOPHILS % (AUTO) 0.4 % (0.0-2.0); HEMATOCRIT 40 % (39-51); LYMPHOCYTES # (AUTO) 0.3 /CMM (0.8-4.8); LYMPHOCYTES % (AUTO) 1.7 % (20.0-44.0); MEAN CORPUSCULAR HGB CONC 33 g/dl (31.0-36.0); MEAN CORPUSCULAR VOLUME 107 fL (80-96); MONOCYTES # (AUTO) 1.5 /CMM (0.1-1.30); MONOCYTES % (AUTO) 7.5 % (2.0-12.0); NEUTROPHILS # (AUTO) 18.1 /CMM (1.8-8.9); NEUTROPHILS % (AUTO) 90.4 % (43.0-81.0); PLATELET COUNT (AUTO) 308 /CMM (150-450)
--- NOTE | 2019-02-27 07:10 | NUR ---
ELIZA RN OPENING NOTES RECEIVED REPORT FROM PM NURSE.PATIENT AXOX3.WITH PERIODS OF FRETFULNESS.NO SOB NO DISTRESS NOTED.PATIENT ON O2 VIA NASAL CANULA 4L .ON TELE MONITOR SR WITH OCCASIONAL PVC HR 76.IV ON RFA#20 INTACT AND PATENT WITH IVF.BED IS LOW AND IN LOCKED POSITION.CALL LIGHT IN REACH.SRX3.BED ALARM ON.WILL CONTINUE TO MONITOR.
[2019-02-27 07:13] LABS: CALCIUM, SERUM 7.7 mg/dL (8.5-10.1); CARBON DIOXIDE 24 mmol/L (21-32); CHLORIDE 109 mmol/L (98-107); CREATININE 1.1 mg/dL (0.6-1.3); GLUCOSE 125 mg/dL (74-106); MAGNESIUM 1.8 mg/dL (1.8-2.4); PHOSPHORUS 1.9 mg/dL (2.5-4.9); POTASSIUM 3.4 mmol/L (3.5-5.1); SODIUM SERUM 141 mmol/L (136-145); UREA NITROGEN, BLOOD 17 mg/dL (7-18)
[2019-02-27] MEDS ORDERED: FEE PK DOSING 1 MIN EA MC ONE (07:14)
[2019-02-27 07:30] LABS: CHOLESTEROL 93 mg/dL (<200); HDL CHOLESTEROL 44 mg/dL (40-60); LDL 50 mg/dL (0-99); TRIGLYCERIDES 27 mg/dL (30-150)
[2019-02-27 08:00] VITALS: BP_SYST 116; BP_SYST 98; BP_DIAS 53; BP_DIAS 67
[2019-02-27] MEDS ORDERED: VANCOMYCIN 1 GM in IV D5W 250 ML IV SCH ×2 (09:00→21:00)
[2019-02-27] MEDS: FINASTERIDE (5 MG) 5 MG TABLET PO SCH (09:01)
[2019-02-27] MEDS: HYDROXYUREA 500 MG CAPSULE PO SCH (09:02)
[2019-02-27] MEDS: TAMSULOSIN 0.4 MG CAP.SR.24H PO SCH (09:02)
[2019-02-27] MEDS: APIXABAN 5 MG TABLET PO SCH ×2 (09:02→16:39)
[2019-02-27] MEDS ORDERED: POTASSIUM CHLORIDE 20 MEQ TAB.PRT.SR PO SCH (11:00)
[2019-02-27 12:00] VITALS: BP 109/49
[2019-02-27] MEDS ORDERED: K PHOS NEUTRAL 250 MG TABLET PO ONE (12:00)
[2019-02-27] MEDS: IPRATROPIUM NEB FS 0.5 MG/2.5 ML AMPUL.NEB NEB SCH ×2 (15:30→19:30)
[2019-02-27] MEDS: ALBUTEROL HALF STRENGTH 1.25 MG/3 ML VIAL.NEB NEB SCH ×2 (15:30→19:30)
[2019-02-27 16:00] VITALS: BP 118/53
[2019-02-27] MEDS ORDERED: IV NS 0.9% 250 ML IV ONE ×2 (16:06→16:14)
[2019-02-27] MEDS ORDERED: IOHEXOL-350 100 ML VIAL IV ONE ×2 (16:06→16:13)
[2019-02-27] MEDS ORDERED: CT SWABBABLE VALVE TRANS SET 1 EA INFUS.SET MC ONE ×2 (16:06→16:13)
--- NOTE | 2019-02-27 18:05 | NUR ---
ELIZA RN NOTE GOT CALL FROM RADIOLOGY,REPORT POSITIVE RESULT FOR BILATERAL PE. MADE AWARE.GOT NEW ORDER FOR D/C ELIQUIS AND TO START ON LOVENOX 1MG/KG SQ Q12H TO START 02/28/19 0500.TO RECOMMEND TO HAVE HEMATOLOGY CONSULTATION .
[2019-02-27] MEDS ORDERED: ENOXAPARIN SODIUM 80 MG/0.8 ML DISP.SYRIN SQ SCH (18:06)
--- NOTE | 2019-02-27 18:46 | NUR ---
ELIZA RN CLOSING NOTES .PATIENT AXOX3.NO SOB NO DISTRESS NOTED.PATIENT ON O2 VIA NASAL CANULA 4L .ON TELE MONITOR SR WITH OCCASIONAL PVC HR 78.IV ON RFA#20 AND LAC#20 INTACT AND PATENT WITH IVF.BED IS LOW AND IN LOCKED POSITION.CALL LIGHT IN REACH.SRX3.BED ALARM ON.TOUCH UP PAINTER NEGRETTE MADE AWARE ABOUT POSITIVE PE AND HEMATOLOGY RECOMMENDATION FROM HUMAN PERFORMANCE TECHNOLOGIST.AWAITING FOR BILATERAL VENOUS DOPPLER RESULT.WILL ENDORSE TO PM NURSE FOR TRENT.
[2019-02-27 19:14] LABS: CREATININE, URINE 128.7 MG/DL (30.0-125.0); URINE TOTAL PROTEIN 21.1 mg/dL (0-11.9)
[2019-02-27 19:42] LABS: APPEARANCE,URINE CLEAR (CLEAR); BILIRUBIN,URINE NEGATIVE (NEGATIVE); BLOOD, URINE 2+ Ery/uL (NEGATIVE); COLOR,URINE YELLOW (YELLOW); KETONES,URINE NEGATIVE (NEGATIVE); LEUKOCYTE ESTERASE ,URINE NEGATIVE (NEGATIVE); NITRITE, URINE NEGATIVE (NEGATIVE); PROTEIN,URINE NEGATIVE (NEGATIVE); UGLUCOSE NEGATIVE (NEGATIVE); UROBILINOGEN,URINE 0.2 EU/dL (0.2)
[2019-02-27 20:00] VITALS: BP_SYST 124; BP_SYST 96; BP_DIAS 47; BP_DIAS 69
--- NOTE | 2019-02-27 20:12 | NUR ---
ELIZA RN OPENING NOTES RECEIVED REPORT FROM SELAM GUILLORY. PATIENT A/A/O X3, ABLE TO MAKE NEEDS KNOWN. BREATHING EVEN & UNLABORED, TOLERATING O2 @ 4LPM VIA NC. DENIES SOB OR DIFFICULTY BREATHING. ON TELE W/ SINUS RHYTHM, HR 70. RIGHT FOREARM IV #20 INTACT & PATENT W/ DRESSING CDI, SALINE LOCKED. DENIES ANY PAIN OR DISCOMFORT @ THIS TIME. SAFETY MEASURES IN PLACE W/ SIDE RAILS & BED ALARM ON. INSTRUCTED TO USE CALL LIGHT FOR ASSISTANCE. WILL CONTINUE TO MONITOR.
[2019-02-27 20:59] LABS: BACTERIA,URINE Few /HPF (None Seen); SQUAMOUS EPITHELIAL CELL,UR Few /HPF (None Seen); WBC,URINE 0-2 /HPF (0-3)
[2019-02-27] MEDS: ATORVASTATIN 40 MG TABLET PO SCH (21:39)
[2019-02-27] MEDS: LATANOPROST EYE DROP 0.005% 2.5 ML BOTTLE EACHEYE SCH (21:39)
[2019-02-27 21:44] LABS: EOSINOPHIL,URINE None Seen
[2019-02-28] VITALS: BP 96/47
[2019-02-28] MEDS ORDERED: CEFEPIME 1 GM in IV D5W 50 ML IV SCH (01:00)
[2019-02-28] MEDS: IPRATROPIUM NEB FS 0.5 MG/2.5 ML AMPUL.NEB NEB SCH ×5 (01:27→19:16)
[2019-02-28] MEDS: ALBUTEROL HALF STRENGTH 1.25 MG/3 ML VIAL.NEB NEB SCH ×5 (01:28→19:16)
[2019-02-28 04:00] VITALS: BP 111/59
[2019-02-28] MEDS: ENOXAPARIN SODIUM 80 MG/0.8 ML DISP.SYRIN SQ SCH ×2 (05:21→16:12)
--- NOTE | 2019-02-28 07:20 | NUR ---
RECEIVED CARE OF PATIENT. A/OX3. IV SITES C/D/I/P WITH IVF RUNNING PER MD ORDER. PATIENT DENIES PAIN, SOB, DIFFICULTY BREATHING. BLE EDEMA NOTED AND LEGS ELEVATED ON PILLOWS. PATIENT TOLERATING LOW FLOW 02 NS. SAFETY, SKIN, ASPIRATION PRECAUTIONS IN PLACE AND WILL MONITOR. TELE NSR.
[2019-02-28 07:24] LABS: BASOPHILS % (AUTO) 0.4 % (0.0-2.0); EOSINOPHILS % (AUTO) 2.1 % (0.0-6.0); HEMATOCRIT 40 % (39-51); HEMOGLOBIN 13.3 g/dL (13.5-17.5); LYMPHOCYTES # (AUTO) 0.6 /CMM (0.8-4.8); LYMPHOCYTES % (AUTO) 7.5 % (20.0-44.0); MEAN CORPUSCULAR HGB CONC 34 g/dl (31.0-36.0); MEAN CORPUSCULAR VOLUME 105 fL (80-96); MONOCYTES # (AUTO) 1.1 /CMM (0.1-1.30); MONOCYTES % (AUTO) 12.5 % (2.0-12.0); NEUTROPHILS # (AUTO) 6.5 /CMM (1.8-8.9); NEUTROPHILS % (AUTO) 77.5 % (43.0-81.0); PLATELET COUNT (AUTO) 269 /CMM (150-450); RED BLOOD CELL COUNT(AUTO) 3.78 MIL/uL (4.5-6.0); WHITE BLOOD COUNT (AUTO) 8.4 K/uL (4.3-11.0)
[2019-02-28 07:35] LABS: ALANINE AMINOTRANSFERASE 19 U/L (12-78); ALBUMIN 2.4 g/dL (3.4-5.0); ALKALINE PHOSPHATASE 60 U/L (46-116); ASPARTATE AMINOTRANSFERASE 19 U/L (15-37); BILIRUBIN,TOTAL 0.6 mg/dL (0.2-1.0); CALCIUM, SERUM 7.8 mg/dL (8.5-10.1); CARBON DIOXIDE 24 mmol/L (21-32); CHLORIDE 108 mmol/L (98-107); CREATININE 0.8 mg/dL (0.6-1.3); GLUCOSE 98 mg/dL (74-106); MAGNESIUM 1.8 mg/dL (1.8-2.4); PHOSPHORUS 2.5 mg/dL (2.5-4.9); POTASSIUM 3.5 mmol/L (3.5-5.1); SODIUM SERUM 142 mmol/L (136-145); TOTAL PROTEIN, SERUM 5.2 g/dL (6.4-8.2); UREA NITROGEN, BLOOD 14 mg/dL (7-18)
[2019-02-28 07:52] LABS: CREATINE KINASE, TOTAL 41 U/L (39-308); THYROID STIMULATING HORMONE 2.255 uIU/mL (0.358-3.74)
[2019-02-28 08:00] VITALS: BP 138/63
[2019-02-28] MEDS: HYDROXYUREA 500 MG CAPSULE PO SCH (08:34)
[2019-02-28] MEDS: TAMSULOSIN 0.4 MG CAP.SR.24H PO SCH (08:35)
[2019-02-28] MEDS: FINASTERIDE (5 MG) 5 MG TABLET PO SCH (08:36)
[2019-02-28 08:39] LABS: ABG BASE EXCESS -0.9 mmol/L; ABG OXYGEN SATURATION 93.6 % (92.0-98.5); ABG PCO2 35.5 mmHg (35.0-45.0); ABG PH 7.427 (7.350-7.450); ABG PO2 69.3 mmHg (75.0-100.0); AaDO2 117.3 mmHg; COHb 0.7 % (0.5-1.5); MetHb 0.4 % (0.0-1.5); O2Hb 92.6 % (94.0-97.0); SITE, ABG Right Radial; VENT MODE, BG NASAL CANNULA
[2019-02-28] MEDS ORDERED: ENOXAPARIN SODIUM 80 MG/0.8 ML DISP.SYRIN SQ SCH (09:00)
--- NOTE | 2019-02-28 10:15 | NUR ---
DR JUNG AT BEDSIDE. MD AWARE PATIENT BLOOD CX SHOWING GNR. PER MD REPEAT BC. AND PENDING DR MONTERO CONSULT TO DETERMINE IF WANT PO ANTICOAGS OR FILTER POSSIBLY.
[2019-02-28] MEDS ORDERED: VANCOMYCIN 1 GM in IV D5W 250 ML IV SCH (11:00)
[2019-02-28] MEDS: CEFEPIME 2 GM in IV D5W 100 ML IV SCH (12:16)
[2019-02-28 16:00] VITALS: BP 122/65
[2019-02-28] MEDS: IV NS 0.9% 1,000 ML IV PRN (16:21)
--- NOTE | 2019-02-28 18:00 | NUR ---
DR MONTERO AT BEDSIDE FOR EVAL
--- NOTE | 2019-02-28 18:45 | NUR ---
ALL DUE MEDS GIVEN AND ALL NEEDS MET. PATIENT DENIES SOB, DIFFICULTY BREATHING OR PAIN. IVF RUNNING PER MD ORDER. IV SITE C/D/I/P; DRESSING CHANGED. TOLERATING LOW FLOW 02 NC. NO S/S BLEEDING. NO NEW COMPLAINTS PER PATIENT. SAFETY, SKIN, ASPIRATION PRECAUTIONS IN PLACE AND CALL LIGHT IN REACH.
--- NOTE | 2019-02-28 19:39 | NUR ---
ELIZA RN OPENING NOTES RECEIVED REPORT FROM NORMA GUILLORY. PATIENT A/A/O X3, ABLE TO MAKE NEEDS KNOWN. BREATHING EVEN & UNLABORED, TOLERATING O2 @ 4LPM VIA NC. BREATHING TX IN PROGRESS. DENIES SOB OR DIFFICULTY BREATHING. RADIAL PULSES PRESENT. RIGHT FOREARM & LEFT FOREARM IV #20 INTACT & PATENT W/ DRESSING CDI & IVF NS INFUSING WELL @ 75 ML/HR. DENIES ANY PAIN OR DISCOMFORT @ THIS TIME. SAFETY MEASURES IN PLACE W/ SIDE RAILS & BED ALARM ON. INSTRUCTED TO USE CALL LIGHT FOR ASSISTANCE. WILL CONTINUE TO MONITOR.
[2019-02-28 20:00] VITALS: BP 123/60
[2019-02-28] MEDS: ATORVASTATIN 40 MG TABLET PO SCH (21:39)
[2019-02-28] MEDS: LATANOPROST EYE DROP 0.005% 2.5 ML BOTTLE EACHEYE SCH (21:40)
[2019-03-01] MEDS: IPRATROPIUM NEB FS 0.5 MG/2.5 ML AMPUL.NEB NEB SCH ×4 (01:01→20:24)
[2019-03-01] MEDS: ALBUTEROL HALF STRENGTH 1.25 MG/3 ML VIAL.NEB NEB SCH ×4 (01:01→20:24)
[2019-03-01] MEDS: CEFEPIME 2 GM in IV D5W 100 ML IV SCH ×2 (01:17→12:49)
[2019-03-01 04:00] VITALS: BP 115/66
[2019-03-01] MEDS: ENOXAPARIN SODIUM 80 MG/0.8 ML DISP.SYRIN SQ SCH ×2 (05:07→17:28)
[2019-03-01] MEDS: IV NS 0.9% 1,000 ML IV PRN (06:10)
[2019-03-01 06:44] LABS: CALCIUM, SERUM 8.1 mg/dL (8.5-10.1); CARBON DIOXIDE 25 mmol/L (21-32); CHLORIDE 110 mmol/L (98-107); CREATININE 0.7 mg/dL (0.6-1.3); GLUCOSE 98 mg/dL (74-106); POTASSIUM 3.9 mmol/L (3.5-5.1); SODIUM SERUM 143 mmol/L (136-145); UREA NITROGEN, BLOOD 11 mg/dL (7-18)
--- NOTE | 2019-03-01 07:05 | NUR ---
MS RN OPENING NOTES RECEIVED REPORT FROM CHURN OPERATOR NURSE. PATIENT A/A/O X3, ABLE TO MAKE NEEDS KNOWN. BREATHING EVEN & UNLABORED, TOLERATING O2 @ 4LPM VIA NC. DENIES SOB OR DIFFICULTY BREATHING. RADIAL PULSES PRESENT. RIGHT FOREARM & LEFT FOREARM IV #20 INTACT & PATENT W/ DRESSING CDI & IVF NS INFUSING WELL @ 75 ML/HR. DENIES ANY PAIN OR DISCOMFORT @ THIS TIME. SAFETY MEASURES IN PLACE W/ SIDE RAILS & BED ALARM ON. INSTRUCTED TO USE CALL LIGHT FOR ASSISTANCE. WILL CONTINUE TO MONITOR.
[2019-03-01 07:07] LABS: IRON, SERUM 20 ug/dl (50-175); TOTAL IRON BINDING CAPACITY 211 ug/dl (250-450)
[2019-03-01 07:48] LABS: FERRITIN 45 ng/mL (8-388)
[2019-03-01 08:00] VITALS: BP 130/74
[2019-03-01 08:08] LABS: *SPE A/G RATIO 1.1 (0.7-1.7); *SPE ALBUMIN 2.5 g/dL (2.9-4.4); *SPE ALPHA-1-GLOBULIN 0.3 g/dL (0.0-0.4); *SPE ALPHA-2-GLOBULIN 0.5 g/dL (0.4-1.0); *SPE BETA GLOBULIN 0.7 g/dL (0.7-1.3); *SPE GLOBULIN, TOTAL 2.2 g/dL (2.2-3.9); *SPE M-SPIKE Not Observed g/dL (Not Observed); *SPEGAMMA GLOBULIN 0.6 g/dL (0.4-1.8)
[2019-03-01] MEDS: FINASTERIDE (5 MG) 5 MG TABLET PO SCH (09:13)
[2019-03-01] MEDS: TAMSULOSIN 0.4 MG CAP.SR.24H PO SCH (09:14)
[2019-03-01] MEDS: HYDROXYUREA 500 MG CAPSULE PO SCH (09:14)
[2019-03-01] MEDS ORDERED: CT SWABBABLE VALVE TRANS SET 1 EA INFUS.SET MC ONE (10:02)
[2019-03-01] MEDS ORDERED: IV NS 0.9% 250 ML IV ONE (10:02)
[2019-03-01] MEDS ORDERED: IOHEXOL-300 100 ML VIAL IV ONE (10:02)
--- NOTE | 2019-03-01 10:20 | NUR ---
MS RN NOTES PT LEFT THE UNIT VIA WHEELCHAIR WITH CEMENTER MACHINE APPLICATOR FOR CT ABDOMEN PELVIS WITH CONTRAST.
[2019-03-01 12:09] LABS: PTH, INTACT 57 pg/mL (15-65)
[2019-03-01 16:00] VITALS: BP 110/57
--- NOTE | 2019-03-01 17:00 | NUR ---
MS RN NOTES PAGED MD PER PATIENT REQUEST TO SPEAK WITH MD REGARDING HIS HEALTH AND PLANS. MD CALLED BACK AND SAID HE WILL SPEAK WITH THE PATIENT IN 1 TO 1.5 HRS. WILL CONT. TO MONITOR PT.
[2019-03-01] MEDS: METRONIDAZOLE 500 MG TABLET PO SCH (17:27)
--- NOTE | 2019-03-01 19:20 | NUR ---
MS RN CLOSING NOTES PATIENT RESTING IN BED, A/A/O X3, ABLE TO MAKE NEEDS KNOWN. BREATHING EVEN & UNLABORED, TOLERATING O2 @ 4LPM VIA NC. DENIES SOB OR DIFFICULTY BREATHING. RADIAL PULSES PRESENT. IV SITES PATENT AND FLUSHING WELL, IV SITES CDI. DENIES ANY PAIN OR DISCOMFORT @ THIS TIME. SAFETY MEASURES IN PLACE THROUGH OUT SHIFT. INSTRUCTED TO USE CALL LIGHT FOR ASSISTANCE. ENDORSED TO INCIDENT RESPONSE LEAD NURSE FOR TRENT.
[2019-03-01 20:21] VITALS: BP 132/67
[2019-03-01] MEDS ORDERED: METRONIDAZOLE 500 MG TABLET PO SCH (21:00)
[2019-03-01] MEDS: LATANOPROST EYE DROP 0.005% 2.5 ML BOTTLE EACHEYE SCH (22:10)
[2019-03-01] MEDS: ATORVASTATIN 40 MG TABLET PO SCH (22:10)
[2019-03-02 00:12] VITALS: BP 132/67
[2019-03-02] MEDS: IPRATROPIUM NEB FS 0.5 MG/2.5 ML AMPUL.NEB NEB SCH ×4 (00:54→19:40)
[2019-03-02] MEDS: ALBUTEROL HALF STRENGTH 1.25 MG/3 ML VIAL.NEB NEB SCH ×4 (00:54→19:40)
[2019-03-02] MEDS: METRONIDAZOLE 500 MG TABLET PO SCH ×3 (01:10→17:31)
--- NOTE | 2019-03-02 01:33 | NUR ---
MS Notes: A/Ox4 02 @ 2L N/c S/L x2 right and Left A/C patent and no s/s of infection. Using urinal to void. Denies of any distress. Side rails up Call light with reach.
[2019-03-02 05:05] VITALS: BP 125/71
[2019-03-02] MEDS: ENOXAPARIN SODIUM 80 MG/0.8 ML DISP.SYRIN SQ SCH ×2 (05:49→17:31)
--- NOTE | 2019-03-02 05:53 | NUR ---
End of Shift: Lying in be awake 02 @ 2L n/c s/l x2 intact Denies of distress. Side rails up Call light within reach. Remains stable.
[2019-03-02 06:57] LABS: BASOPHILS # (AUTO) 0.1 /CMM (0.0-0.2); BASOPHILS % (AUTO) 1.1 % (0.0-2.0); EOSINOPHILS % (AUTO) 3.8 % (0.0-6.0); HEMATOCRIT 40 % (39-51); HEMOGLOBIN 13.2 g/dL (13.5-17.5); LYMPHOCYTES # (AUTO) 0.7 /CMM (0.8-4.8); LYMPHOCYTES % (AUTO) 12.4 % (20.0-44.0); MEAN CORPUSCULAR HGB CONC 33 g/dl (31.0-36.0); MEAN CORPUSCULAR VOLUME 106 fL (80-96); MONOCYTES # (AUTO) 0.8 /CMM (0.1-1.30); MONOCYTES % (AUTO) 14.8 % (2.0-12.0); NEUTROPHILS # (AUTO) 3.7 /CMM (1.8-8.9); NEUTROPHILS % (AUTO) 67.9 % (43.0-81.0); PLATELET COUNT (AUTO) 238 /CMM (150-450); RED BLOOD CELL COUNT(AUTO) 3.78 MIL/uL (4.5-6.0); WHITE BLOOD COUNT (AUTO) 5.4 K/uL (4.3-11.0)
[2019-03-02 07:08] LABS: ALANINE AMINOTRANSFERASE 33 U/L (12-78); ALBUMIN 2.3 g/dL (3.4-5.0); ALKALINE PHOSPHATASE 68 U/L (46-116); ASPARTATE AMINOTRANSFERASE 30 U/L (15-37); BILIRUBIN,TOTAL 0.4 mg/dL (0.2-1.0); CALCIUM, SERUM 8.2 mg/dL (8.5-10.1); CARBON DIOXIDE 26 mmol/L (21-32); CHLORIDE 113 mmol/L (98-107); CREATININE 0.7 mg/dL (0.6-1.3); GLUCOSE 100 mg/dL (74-106); PHOSPHORUS 2.8 mg/dL (2.5-4.9); POTASSIUM 3.7 mmol/L (3.5-5.1); SODIUM SERUM 147 mmol/L (136-145); UREA NITROGEN, BLOOD 9 mg/dL (7-18)
[2019-03-02 08:00] VITALS: BP 153/78
--- NOTE | 2019-03-02 08:29 | NUR ---
RN INITAL NOTES RECEIVED PT AWAKE AND ALERT, DENIES PAIN. AFEBRILE AT THIS TIME. SAFETY ENSURED.
--- NOTE | 2019-03-02 08:43 | NUR ---
PER MD MOSQUEDA CANCEL DAILY ABG ORDERS, CHARGE NURSE SOON MADE AWARE...
[2019-03-02] MEDS: HYDROXYUREA 500 MG CAPSULE PO SCH (09:00)
[2019-03-02] MEDS: TAMSULOSIN 0.4 MG CAP.SR.24H PO SCH (09:00)
[2019-03-02] MEDS: FINASTERIDE (5 MG) 5 MG TABLET PO SCH (09:00)
[2019-03-02 16:00] VITALS: BP 116/60
--- NOTE | 2019-03-02 16:46 | NUR ---
RN NOTES CALLED SERGIO AND SPOKE TO GEOVANNI, BLOOD CULTURE RESULTS NOT AVAILABLE AT THIS TIME, NOT EVEN PRELIMINARY RESULT
--- NOTE | 2019-03-02 17:28 | NUR ---
rn notes notified dr rand re culture results not available yet. pt and daughter Mary updated with poc and verbalized understanding
--- NOTE | 2019-03-02 18:18 | NUR ---
CLOSING NOTES NO SIGNIFICANT CHANGE NOTED. AFEBRILE AND ALL MEDS GIVEN. NO C/O PAIN MADE. WILL ENDORSE FOR CONITNUITY OF CARE IN STABLE CONDITION
[2019-03-02 20:00] VITALS: BP 117/72
--- NOTE | 2019-03-02 20:00 | NUR ---
RN INITIAL NOTES RECEIVED PATIENT IN BED. PATIENT A/A/O X3, ABLE TO MAKE NEEDS KNOWN. BREATHING EVEN & UNLABORED, TOLERATING O2 @ 2L O2 NC. DENIES SOB OR DIFFICULTY BREATHING. RIGHT FOREARM & LEFT FOREARM IV #20 INTACT & PATENT W/ DRESSING CDI & S/L. DENIES ANY PAIN OR DISCOMFORT @ THIS TIME. SAFETY MEASURES IN PLACE W/ SIDE RAILS & BED ALARM ON. INSTRUCTED TO USE CALL LIGHT FOR ASSISTANCE. WILL CONTINUE TO MONITOR.
[2019-03-02] MEDS: ATORVASTATIN 40 MG TABLET PO SCH (21:34)
[2019-03-02] MEDS: LATANOPROST EYE DROP 0.005% 2.5 ML BOTTLE EACHEYE SCH (21:37)
[2019-03-03] MEDS: METRONIDAZOLE 500 MG TABLET PO SCH ×2 (00:08→09:50)
[2019-03-03] MEDS: IPRATROPIUM NEB FS 0.5 MG/2.5 ML AMPUL.NEB NEB SCH ×3 (00:42→14:06)
[2019-03-03] MEDS: ALBUTEROL HALF STRENGTH 1.25 MG/3 ML VIAL.NEB NEB SCH ×3 (00:42→14:06)
[2019-03-03 04:00] VITALS: BP 109/66
[2019-03-03] MEDS: ENOXAPARIN SODIUM 80 MG/0.8 ML DISP.SYRIN SQ SCH (04:53)
--- NOTE | 2019-03-03 07:25 | NUR ---
RN CLOSING NOTES NO SIGNIFICANT CHANGE NOTED. PT IN STABLE CONDITION . NO C/O PAIN MADE. WILL ENDORSE TO AM RN FOR CONTINUITY OF CARE.
[2019-03-03 07:45] LABS: CALCIUM, SERUM 8.5 mg/dL (8.5-10.1); CARBON DIOXIDE 28 mmol/L (21-32); CHLORIDE 111 mmol/L (98-107); CREATININE 0.8 mg/dL (0.6-1.3); GLUCOSE 103 mg/dL (74-106); POTASSIUM 4.1 mmol/L (3.5-5.1); SODIUM SERUM 145 mmol/L (136-145); UREA NITROGEN, BLOOD 11 mg/dL (7-18)
[2019-03-03 08:00] VITALS: BP 146/74
[2019-03-03] MEDS: HYDROXYUREA 500 MG CAPSULE PO SCH (09:46)
[2019-03-03] MEDS: TAMSULOSIN 0.4 MG CAP.SR.24H PO SCH (09:47)
[2019-03-03] MEDS: FINASTERIDE (5 MG) 5 MG TABLET PO SCH (09:47)
--- NOTE | 2019-03-03 16:30 | NUR ---
PRODUCT INSPECTION SUPERVISOR NOTES PT STABLE. DENIES SOB OR DIFFICULTY BREATHING. EXIT CARE DONE. DC EDUCATION DONE. DENIES ANY PAIN OR DISCOMFORT. SAFETY MEASURES IN PLACE THROUGHOUT SHIFT. ALL MD ORDERS ATTENDED. PT LEFT THE UNIT VIA WHEELCHAIR WITH SENIOR FINANCIAL CONSULTANT AND DAUGHTER.
== END 2019-03-03 16:45 | disposition home health service (06) | DRG 871 ==
LOC: ER 22:56 → TELE-TD 02-27 00:56 → TELE1 02-27 20:41 → MEDSG1 02-28 09:00
PROVIDERS: ADMIT Nurse Practitioner Acute Care; ATTEND Internal Medicine
DX: A41.9 Sepsis, unspecified organism (principal); J96.21 Acute and chronic respiratory failure with hypoxia; J15.6 Pneumonia due to other Gram-negative bacteria; N17.0 Acute kidney failure with tubular necrosis; I26.99 Other pulmonary embolism without acute cor pulmonale; E87.2 Acidosis; J44.0 Chronic obstructive pulmonary disease with (acute) lower respiratory infection; J98.11 Atelectasis; D68.69 Other thrombophilia; D45 Polycythemia vera; E78.5 Hyperlipidemia, unspecified; N40.0 Benign prostatic hyperplasia without lower urinary tract symptoms; Z86.718 Personal history of other venous thrombosis and embolism; Z86.711 Personal history of pulmonary embolism; Z85.51 Personal history of malignant neoplasm of bladder; Z92.21 Personal history of antineoplastic chemotherapy; Z87.891 Personal history of nicotine dependence; D72.829 Elevated white blood cell count, unspecified; E87.6 Hypokalemia; E83.39 Other disorders of phosphorus metabolism; I10 Essential (primary) hypertension; K21.9 Gastro-esophageal reflux disease without esophagitis; D53.9 Nutritional anemia, unspecified; Z79.01 Long term (current) use of anticoagulants; Z99.81 Dependence on supplemental oxygen
CPT/HCPCS: 36415; 36600; 71045-TC; 76700-TC; 80048-TC; 80053-TC; 80061-TC; 80076-TC; 80202-TC; 81000-TC; 82550-TC; 82570-TC; 82728-TC; 82803-TC; 83540-TC; 83605-TC; 83735-TC; 83880; 83970; 84100-TC; 84155; 84155-TC; 84165; 84300-TC; 84439-TC; 84443-TC; 84484-TC; 85025-TC; 85610-TC; 85730-TC; 87040-TC; 87081-TC; 87086-TC; 87400; 93307-TC; 93970-TC; 94799-TC; G0378; J0692; J1650; J3370; J7030; J7040; J7050; J7060; Q9967

== ENCOUNTER 2022-09-12 11:19 | Inpatient (IN) | payer MEDICARE ==
[2022-09-12] VITALS (10 sets, daily range): BP systolic 110–159; BP diastolic 68–108
[~2022-09-12] VITALS: Ht 188 cm; Wt 73.0 kg
[~2022-09-12 11:19] MED LIST changes: +LATA2.5D15 EACHEYE; -LATA2.5D7 EACHEYE
--- NOTE | 2022-09-12 11:20 | NUR ---
[id number] FROM HOME C/O SOB SINCE THIS AM, HYPERTENSIVE IN FIELD, NITRO X3 AND ALBUTEROL GIVEN HAUL CANE BRAKEMAN. +BLE EDEMA NOTED. PLACED ON BED, AAOX4, DYSPNEIC RR-24, ATTACHED TO MONITOR SATS-80%RA, KNOWN HX OF COPD, KNITTING DEMONSTRATOR AT BEDSIDE GIVING BREATHING TREATMENT SATURATING AT 90%.
[2022-09-12] MEDS ORDERED: ALBUTEROL FS 2.5 MG/3 ML VIAL.NEB ONE (11:24)
[2022-09-12] MEDS ORDERED: Magnesium 1GM/D5W 100ML PREMIX 100 ML IV ONE (11:25)
[2022-09-12] MEDS ORDERED: methylPREDNISolone SOD SUCC 125 MG/2ML VIAL ONE (11:25)
[2022-09-12] MEDS ORDERED: Magnesium 1GM/D5W 100ML PREMIX 200 ML IV ONE (11:30)
[2022-09-12] MEDS ORDERED: ALBUTEROL FS 2.5 MG/3 ML VIAL.NEB NEB ONE (11:30)
[2022-09-12] MEDS ORDERED: IPRATROPIUM NEB FS 0.5 MG/2.5 ML AMPUL.NEB NEB ONE (11:30)
[2022-09-12] MEDS ORDERED: methylPREDNISolone SOD SUCC 125 MG/2ML VIAL IV ONE (11:30)
--- NOTE | 2022-09-12 11:32 | NUR ---
Alfred leung in [facility] - 09/12/22 at 1141 by LEON X-RAY TECH AT BEDSIDE
--- NOTE | 2022-09-12 11:34 | NUR ---
GANG PLANK WORKMAN AT BEDSIDE, SWAB FOR COVID19 SENT TO LAB
--- NOTE | 2022-09-12 11:35 | NUR ---
X-RAY TECH AT BEDSIDE
[2022-09-12 12:06] LABS: BASOPHILS # (AUTO) 0.1 K/uL (0.0-0.2); BASOPHILS % (AUTO) 0.5 % (0.0-2.0); EOSINOPHILS % (AUTO) 3.5 % (0.0-6.0); LYMPHOCYTES % (AUTO) 15.2 % (20.0-44.0); MEAN CORPUSCULAR HGB CONC 32 g/dl (31.0-36.0); MEAN CORPUSCULAR VOLUME 87 fL (80-96); MONOCYTES # (AUTO) 1.1 K/uL (0.1-1.30); MONOCYTES % (AUTO) 8.4 % (2.0-12.0); NEUTROPHILS # (AUTO) 9.3 K/uL (1.8-8.9); NEUTROPHILS % (AUTO) 72.4 % (43.0-81.0); PLATELET COUNT (AUTO) 271 K/uL (150-450); RED BLOOD CELL COUNT(AUTO) 6.91 MIL/uL (4.5-6.0); WHITE BLOOD COUNT (AUTO) 12.9 K/uL (4.3-11.0)
[2022-09-12 12:07] LABS: HEMOGLOBIN 19.1 g/dL (13.5-17.5)
[2022-09-12 12:09] LABS: HEMATOCRIT 60 % (39-51)
--- NOTE | 2022-09-12 12:15 | NUR ---
PATIENT STILL DESATURATES TO 80% DR LAW PEREZ ORDERS BIPAP- POWER GENERATION TECHNICIAN AT BEDSIDE AND ATTACHED TO BIPAP WITH THE SETTING IPAP-15, EPAP-5, O2-80% SATURATING AT 95%.
[2022-09-12 12:24] LABS: CALCIUM, SERUM 9.1 mg/dL (8.5-10.1); CARBON DIOXIDE 26 mmol/L (21-32); CHLORIDE 107 mmol/L (98-107); CREATININE 1.2 mg/dL (0.6-1.3); GLUCOSE 136 mg/dL (74-106); POTASSIUM 4.1 mmol/L (3.5-5.1); SODIUM SERUM 143 mmol/L (136-145); UREA NITROGEN, BLOOD 14 mg/dL (7-18)
--- NOTE | 2022-09-12 12:30 | NUR ---
TROPONIN-1999 DR LAW AWARE
[2022-09-12 12:36] LABS: ALANINE AMINOTRANSFERASE 24 U/L (12-78); ALBUMIN 3.1 g/dL (3.4-5.0); ALKALINE PHOSPHATASE 90 U/L (46-116); ASPARTATE AMINOTRANSFERASE 34 U/L (15-37); BILIRUBIN,DIRECT 0.6 mg/dL (0.0-0.2); BILIRUBIN,TOTAL 1.5 mg/dL (0.2-1.0); TOTAL PROTEIN, SERUM 6.6 g/dL (6.4-8.2)
[2022-09-12] MEDS ORDERED: IV NS 0.9% 250 ML IV ONE (12:36)
[2022-09-12] MEDS ORDERED: IOHEXOL-350 100 ML VIAL IV ONE (12:36)
--- NOTE | 2022-09-12 13:14 | NUR ---
room assigned. 261 icu.
--- NOTE | 2022-09-12 13:31 | NUR ---
REPORT GIVEN TO MANDIE GUILLORY- ICU FOR TRENT
[2022-09-12 13:45] LABS: ABG BASE EXCESS -2.6 mmol/L; ABG PCO2 35.7 mmHg (35.0-45.0); ABG PH 7.395 (7.350-7.450); COHb 0.2 % (0.5-1.5); MetHb 0.7 % (0.0-1.5); O2Hb 94.8 % (94.0-97.0); SITE, ABG Right Radial; VENT MODE, BG BIPAP 80 %
[2022-09-12 13:55] LABS: EOSINOPHILS % (MANUAL) 3 % (0-4); LYMPHOCYTES % (MANUAL) 16 % (16-48); MONOCYTES % (MANUAL) 10 % (0-11.0); NEUTROPHILS % (MANUAL) 71 (42-76)
--- NOTE | 2022-09-12 14:15 | NUR ---
PATIENT TAKEN TO CT FOR PULM. ANGIO VIA GURNEY
--- NOTE | 2022-09-12 14:50 | NUR ---
PATIENT MOVED FROM CT DEPT. TO ICU VIA [facility] AND ADMITTED FOR TRENT
[2022-09-12] MEDS ORDERED: ZOLPIDEM TARTRATE 5 MG TABLET PO PRN (15:30)
[2022-09-12] MEDS ORDERED: ACETAMINOPHEN 325 MG TABLET PO PRN (15:30)
[2022-09-12] MEDS ORDERED: HYDROCODONE/APAP 5/325MG TABLET PO PRN (15:30)
[2022-09-12] MEDS ORDERED: ONDANSETRON HCL/PF 4 MG/2 ML VIAL IVP PRN (15:30)
[2022-09-12] MEDS ORDERED: MAGNESIUM HYDROXIDE 30 ML UDC PO PRN (15:30)
[2022-09-12] MEDS: FUROSEMIDE 40 MG/4 ML VIAL IV SCH (15:36)
--- NOTE | 2022-09-12 15:56 | NUR ---
ICU/RN PT RECEIVED IN BED ON 10L O2 NRB, INCREASED TO 15L DUE TO STRUGGLED BREATHING FROM PT, SAT BETWEEN 88% AND 92%. LEFT AC AND RIGHT AC 20G IN PLACE, FLUSHING WELL. BILATERAL LOWER EXTREMITIES EDEMA PITTING +4. DNP PANDYA ASSESSED AND TALKED TO PT AT BEDSIDE. PT SR/STACH ON BEDSIDE MONITOR, BP STABLE. BED LOCKED AND IN LOWEST POSITION, CALL LIGHT WITHIN REACH, 3 SIDE RAILS UP.
[2022-09-12] MEDS: DOXYCYCLINE 100 MG in IV D5W 100 ML IV SCH (17:05)
[2022-09-12] MEDS: IV NS 0.9% 250 ML IV PRN (17:05)
[2022-09-12] MEDS: ENOXAPARIN SODIUM 80 MG/0.8 ML DISP.SYRIN SQ SCH (18:48)
--- NOTE | 2022-09-12 18:48 | NUR ---
ICU/RN PER DNP PANDYA ORDER, OK TO GIVE LOVENOX.
--- NOTE | 2022-09-12 18:57 | NUR ---
ICU/RN PT REMAINS IN BED, RESTING. PT ON 15L O2 NRB SAT 94% ON BEDSIDE MONITOR. SINUS RHYTHM ON MONITOR AT THIS TIME. LEFT AC 20G AND RIGHT AC 20G IN PLACE. BED LOCKED AND IN LOWEST POSITION, CALL LIGHT WITHIN REACH, 3 SIDE RAILS UP.
--- NOTE | 2022-09-12 19:10 | NUR ---
RN NOTES RECEIVED REPORT FROM MORNING RN. PATIENT IN BED A/O X2-3 WITH PERIODS OF CONFUSION. WITH IV ACCESS AT L AC #20, R AC #20 PATENT FLUSHES WELL. ON NON REBREATHER MASK 15LPM TOLERATING WELL SATING 93%. BILATERAL LOWER LEG EDEMA +4. ALL SAFETY MEASURES IN PLACE AT ALL TIMES. HOB ELVATED. CALL LIGHT WITHIN REACH. WILL CLOSELY MONITOR THE PATIENT
[2022-09-12] MEDS: IPRATROPIUM NEB FS 0.5 MG/2.5 ML AMPUL.NEB NEB SCH (19:51)
[2022-09-12] MEDS: LEVALBUTEROL HCL NEB 1.25 MG/0.5 ML VIAL.NEB NEB SCH (19:51)
[2022-09-12] MEDS: methylPREDNISolone SOD SUCC 40 MG/ML VIAL IV SCH (21:03)
[2022-09-12] MEDS: LATANOPROST EYE DROP 0.005% 2.5 ML BOTTLE EACHEYE SCH (21:04)
[2022-09-12] MEDS: ATORVASTATIN 10 MG TABLET PO SCH (21:04)
[2022-09-13] VITALS (23 sets, daily range): BP systolic 112–169; BP diastolic 27–120
[2022-09-13] MEDS: LEVALBUTEROL HCL NEB 1.25 MG/0.5 ML VIAL.NEB NEB SCH ×4 (01:56→20:00)
[2022-09-13] MEDS: IPRATROPIUM NEB FS 0.5 MG/2.5 ML AMPUL.NEB NEB SCH ×4 (01:56→20:00)
[2022-09-13] MEDS: DOXYCYCLINE 100 MG in IV D5W 100 ML IV SCH ×2 (04:34→16:05)
[2022-09-13 05:17] LABS: BASOPHILS % (AUTO) 0.2 % (0.0-2.0); EOSINOPHILS % (AUTO) 0.1 % (0.0-6.0); LYMPHOCYTES # (AUTO) 0.5 K/uL (0.8-4.8); LYMPHOCYTES % (AUTO) 2.3 % (20.0-44.0); MEAN CORPUSCULAR HGB CONC 32 g/dl (31.0-36.0); MEAN CORPUSCULAR VOLUME 87 fL (80-96); MONOCYTES # (AUTO) 0.5 K/uL (0.1-1.30); MONOCYTES % (AUTO) 2.4 % (2.0-12.0); NEUTROPHILS # (AUTO) 18.4 K/uL (1.8-8.9); PLATELET COUNT (AUTO) 275 K/uL (150-450); WHITE BLOOD COUNT (AUTO) 19.4 K/uL (4.3-11.0)
[2022-09-13 05:21] LABS: HEMATOCRIT 63 % (39-51); HEMOGLOBIN 20.1 g/dL (13.5-17.5)
[2022-09-13] MEDS: methylPREDNISolone SOD SUCC 40 MG/ML VIAL IV SCH ×3 (05:26→21:37)
[2022-09-13 05:49] LABS: THYROID STIMULATING HORMONE 1.115 uIU/mL (0.358-3.74)
--- NOTE | 2022-09-13 06:10 | NUR ---
RN NOTES IV LINE INFILTRATED PATIENT COMPLAINS OF SITE ON IV SITE. MULTIPLE ATTEMPT TO INSERT PERIPHERAL LINE WITH NO SUCCESS. CN MADE AWARE. WILL INSERT MIDLINE IN AM.
--- NOTE | 2022-09-13 06:40 | NUR ---
RN NOTES RELAYED TO DR PEREZ BP 185/76 WITH NEW ORDER FOR HYDRALAZINE 10 MG IV Q6H PRN FOR SBP MORE THAN 180.
--- NOTE | 2022-09-13 06:46 | NUR ---
RN NOTES PATIENT REMAINS STABLE NO SIGNIFICANT CHANGES. ALL DUE MEDS GIVEN ORDERED. STILL ON NON REBREATHER AT 15LPM SATING 98% NO SOB NOTED DURING THE SHIFT. ALL SAFETY MEASURES IN PLACE AT ALL TIMES. HOB ELEVATED. CALL LIGHT WITHIN REACG. FREQUENT VISUAL MONITORING RENDERED WILL ENDORSE TO MORNING SHIFT FOR TRENT
[2022-09-13] MEDS: ENOXAPARIN SODIUM 80 MG/0.8 ML DISP.SYRIN SQ SCH ×2 (06:50→19:49)
[2022-09-13] MEDS ORDERED: hydrALAZINE HCL IV 20 MG VIAL IV PRN (07:00)
[2022-09-13 07:11] LABS: CALCIUM, SERUM 9.6 mg/dL (8.5-10.1); CREATININE 1.3 mg/dL (0.6-1.3); MAGNESIUM 2.4 mg/dL (1.8-2.4); PHOSPHORUS 4.3 mg/dL (2.5-4.9); POTASSIUM 4.5 mmol/L (3.5-5.1)
--- NOTE | 2022-09-13 07:33 | NUR ---
ICU/RN LEFT AC IV LINE REMOVED BY RECRUITMENT AND OUTREACH ASSISTANT, PT COMPLAINING OF PAIN WHEN FLUSHING. RIGHT AC IV LINE REMOVED THIS AM, REDNESS AND MINOR SWELLING AROUND THE SITE NOTED. MIDLINE NURSE AT BEDSIDE INSERTED MIDLINE.
--- NOTE | 2022-09-13 07:45 | NUR ---
ICU/RN PT SAT BETWEEN 88-94% ON 6L O2 NC.
[2022-09-13] MEDS: PANTOPRAZOLE 40 MG TABLET.DR PO SCH (08:03)
[2022-09-13] MEDS: TAMSULOSIN 0.4 MG CAP.SR.24H PO SCH (08:03)
[2022-09-13] MEDS: FINASTERIDE (5 MG) 5 MG TABLET PO SCH (08:03)
[2022-09-13] MEDS: FUROSEMIDE 40 MG/4 ML VIAL IV SCH ×4 (08:03→18:00)
[2022-09-13] MEDS: hydrALAZINE HCL 50 MG TABLET PO SCH ×3 (10:10→16:05)
--- NOTE | 2022-09-13 10:58 | NUR ---
ICU/RN TROPONIN >25,000. DNP PANDYA NOTIFIED.
[2022-09-13 11:14] LABS: EOSINOPHILS % (MANUAL) 1 % (0-4); LYMPHOCYTES % (MANUAL) 2 % (16-48); MONOCYTES % (MANUAL) 2 % (0-11.0); NEUTROPHILS % (MANUAL) 95 (42-76)
[2022-09-13] MEDS: NITROGLYCERIN 30 GM TUBE TP SCH ×2 (11:32→21:41)
[2022-09-13] MEDS: HYDROXYUREA 500 MG CAPSULE PO SCH (17:30)
[2022-09-13] MEDS: QUETIAPINE FUMARATE 25 MG TABLET PO PRN (17:33)
--- NOTE | 2022-09-13 17:44 | NUR ---
ICU/RN PT INCREASINGLY AGITATED AND CONFUSED. PT REFUSING TO STAY IN BED. PT REMOVED BP CUFF, HEART MONITOR AND SPO2 MONITOR. PT REMOVED NASAL CANNULA. DNP PANDYA AWARE. PT ACCEPTED TO TAKE HIS SEROQUEL, REFUSING ALL OTHER MEDICATION AT THIS TIME. TALKED TO DAUGHTER ON THE PHONE, DAUGHTER STATES SHE IS ON HER WAY TO SEE PT.
--- NOTE | 2022-09-13 18:06 | NUR ---
ICU/RN PT STILL REFUSING TO USE OXYGEN THROUGH NASAL CANNULA AND TO BE ATTACHED TO MONITOR. PT CONTINUES TO REFUSE MEDICATION.
--- NOTE | 2022-09-13 18:45 | NUR ---
ICU/RN PT'S SON AND DAUGHTER AT BEDSIDE, PT AGREEING TO HAVE 6L O2 NC ON AT THIS TIME AND OXYGEN MONITOR, STILL REFUSES BP AND HEART MONITOR.
[2022-09-13 19:01] LABS: ABG BASE EXCESS 1.9 mmol/L; ABG OXYGEN SATURATION 89.5 % (92.0-98.5); ABG PCO2 29.6 mmHg (35.0-45.0); ABG PH 7.514 (7.350-7.450); ABG PO2 53.3 mmHg (75.0-100.0); AaDO2 226.7 mmHg; COHb 0.1 % (0.5-1.5); MetHb 0.3 % (0.0-1.5); O2Hb 89.1 % (94.0-97.0); SITE, ABG Right Brachial; VENT MODE, BG 6L N/C
--- NOTE | 2022-09-13 19:10 | NUR ---
ICU/RN PT PLACED BACK ON 15L NRB BY RTN DUE TO ABG RESULTS. RN NOTICED TWICHING OF PT'S RIGHT LEG. STROKE ASSESSMENT PERFORMED, PT DOES NOT DEMONSTRATE FACIAL DROPPING, NO DIFFICULTY SPEAKING, EQUAL STRENGTH BILATERAL LOWER AND UPPER EXTREMITIES. DNP PANDYA NOTIFIED.
--- NOTE | 2022-09-13 20:43 | NUR ---
SEMICONDUCTOR DIES LOADER OPENING NOTE PT RECEIVED IN BED, AWAKE, A&O X2, CONFUSED. PT ON NON-REBREATHER MASK AT 15 LPM WITH CURRENT O2SAT OF 93%. PT REFUSES TO BE ATTACHED TO EXTERNAL MONITOR, HR NOTED TO BE ELEVATED AT 111. DAVID MIDLINE INTACT AND PATENT, FLUSHES EASILY WITH NO RESISTANCE; NO MEDS/FLUIDS INFUSING THROUGH IT. BED IN LOWEST POSITION, CALL LIGHT WITHIN REACH, SIDE RAILS UP X3. WILL CONTINUE TO MONITOR THROUGHOUT THE NIGHT.
[2022-09-13 21:19] LABS: URIC ACID 7.8 mg/dL (2.6-7.2)
[2022-09-13] MEDS: LATANOPROST EYE DROP 0.005% 2.5 ML BOTTLE EACHEYE SCH (21:32)
[2022-09-13] MEDS: ATORVASTATIN 10 MG TABLET PO SCH (21:33)
[2022-09-14] VITALS (20 sets, daily range): BP systolic 105–147; BP diastolic 65–94
[2022-09-14] MEDS: LEVALBUTEROL HCL NEB 1.25 MG/0.5 ML VIAL.NEB NEB SCH ×4 (01:39→20:24)
[2022-09-14] MEDS: IPRATROPIUM NEB FS 0.5 MG/2.5 ML AMPUL.NEB NEB SCH ×4 (01:39→20:24)
[2022-09-14 04:36] LABS: BASOPHILS # (AUTO) 0.1 K/uL (0.0-0.2); BASOPHILS % (AUTO) 0.3 % (0.0-2.0); HEMATOCRIT 56 % (39-51); HEMOGLOBIN 17.7 g/dL (13.5-17.5); LYMPHOCYTES # (AUTO) 0.3 K/uL (0.8-4.8); LYMPHOCYTES % (AUTO) 1.1 % (20.0-44.0); MEAN CORPUSCULAR HGB CONC 32 g/dl (31.0-36.0); MEAN CORPUSCULAR VOLUME 86 fL (80-96); MONOCYTES # (AUTO) 1.3 K/uL (0.1-1.30); MONOCYTES % (AUTO) 5.7 % (2.0-12.0); NEUTROPHILS # (AUTO) 21.7 K/uL (1.8-8.9); NEUTROPHILS % (AUTO) 92.9 % (43.0-81.0); PLATELET COUNT (AUTO) 297 K/uL (150-450); WHITE BLOOD COUNT (AUTO) 23.4 K/uL (4.3-11.0)
[2022-09-14 04:59] LABS: URIC ACID 8.1 mg/dL (2.6-7.2)
[2022-09-14 05:03] LABS: ALANINE AMINOTRANSFERASE 37 U/L (12-78); ALBUMIN 3.1 g/dL (3.4-5.0); ALKALINE PHOSPHATASE 76 U/L (46-116); ASPARTATE AMINOTRANSFERASE 67 U/L (15-37); BILIRUBIN,TOTAL 0.8 mg/dL (0.2-1.0); CALCIUM, SERUM 9.4 mg/dL (8.5-10.1); CARBON DIOXIDE 28 mmol/L (21-32); CHLORIDE 109 mmol/L (98-107); CREATININE 1.4 mg/dL (0.6-1.3); GLUCOSE 141 mg/dL (74-106); MAGNESIUM 2.2 mg/dL (1.8-2.4); POTASSIUM 3.8 mmol/L (3.5-5.1); SODIUM SERUM 146 mmol/L (136-145); UREA NITROGEN, BLOOD 24 mg/dL (7-18)
[2022-09-14 05:33] LABS: EOSINOPHILS % (MANUAL) 3 % (0-4); LYMPHOCYTES % (MANUAL) 4 % (16-48); MONOCYTES % (MANUAL) 9 % (0-11.0); NEUTROPHILS % (MANUAL) 84 (42-76)
[2022-09-14 05:34] LABS: BASOPHILS % (MANUAL) 0 % (0.0-2.0)
--- NOTE | 2022-09-14 06:58 | NUR ---
FUR DRY CLEANER HAND CLOSING NOTE PT REMAINS IN BED, AWAKE, A&O X2, CONFUSED. PT ON NON-REBREATHER MASK; RT TITRATED O2 DOWN FROM 15 LPM TO 8 LPM; WITH CURRENT O2SAT OF 96%. PT ATTACHED TO EXTERNAL MONITOR, ST WITH HR OF 103. RESTRAINTS APPLIED TO PT AT AROUND 0030 D/T PULLING OUT MIDLINE AND MONITORS; NO S/S OF IMPAIRED SKIN OR CIRCULATION; PT PROVIDED WITH HYGIENE, RELEASE OF RESTRAINTS. ALL DUE MEDS ADMINISTERED DURING THE NIGHT. BED IN LOWEST POSITION, CALL LIGHT WITHIN REACH, SIDE RAILS UP X3. WILL ENDORSE TO DAYSHIFT NURSE TO CONTINUE CARE.
--- NOTE | 2022-09-14 07:18 | NUR ---
NEURO OPHTHALMOLOGIST OPENING NOTE PT RECEIVED IN BED, AWAKE, A&O X2, CONFUSED. PT ON NON-REBREATHER MASK AT 15 LPM WITH CURRENT O2SAT OF 93%. PT REFUSES TO BE ATTACHED TO EXTERNAL MONITOR, HR NOTED TO BE ELEVATED AT 111. PATIENT REMOVED THE MID ,LINE AND DIDNT RECEIVED HIS 5 AM .BED IS IN LOWEST POSITION, CALL LIGHT WITHIN REACH, SIDE RAILS UP X3. WILL CONTINUE TO MONITOR THROUGHOUT THE NIGHT.
[2022-09-14] MEDS: ENOXAPARIN SODIUM 80 MG/0.8 ML DISP.SYRIN SQ SCH ×2 (07:34→18:09)
[2022-09-14] MEDS: PANTOPRAZOLE 40 MG TABLET.DR PO SCH (07:35)
[2022-09-14 07:46] LABS: ABG BASE EXCESS 4.9 mmol/L; ABG OXYGEN SATURATION 92.1 % (92.0-98.5); ABG PCO2 39.2 mmHg (35.0-45.0); ABG PH 7.481 (7.350-7.450); ABG PO2 63.4 mmHg (75.0-100.0); AaDO2 263.5 mmHg; COHb 0.3 % (0.5-1.5); MetHb 0.3 % (0.0-1.5); O2Hb 91.5 % (94.0-97.0); SITE, ABG Right Radial
[2022-09-14] MEDS: DOXYCYCLINE 100 MG in IV D5W 100 ML IV SCH ×2 (07:51→16:00)
[2022-09-14] MEDS: methylPREDNISolone SOD SUCC 40 MG/ML VIAL IV SCH ×3 (07:51→20:51)
[2022-09-14] MEDS: FINASTERIDE (5 MG) 5 MG TABLET PO SCH (08:38)
[2022-09-14] MEDS: ALLOPURINOL 100 MG TABLET PO SCH (08:39)
[2022-09-14] MEDS: HYDROXYUREA 500 MG CAPSULE PO SCH ×2 (08:39→16:11)
[2022-09-14] MEDS: TAMSULOSIN 0.4 MG CAP.SR.24H PO SCH (08:39)
[2022-09-14] MEDS: hydrALAZINE HCL 50 MG TABLET PO SCH ×3 (08:39→16:11)
[2022-09-14] MEDS: NITROGLYCERIN 30 GM TUBE TP SCH ×2 (08:43→20:57)
[2022-09-14] MEDS: QUETIAPINE FUMARATE 25 MG TABLET PO PRN (09:38)
--- NOTE | 2022-09-14 09:39 | NUR ---
RN NOTE PATIENT SCEDUPED FOR HEAD CT SCAN , BUT PATIENT IS NON COOPERATIVE , NOTIFIED , ORDER RECEIVED TO GIVE TO THE PATIENT QUETIAPINE 25 MG 1/[address]AN
--- NOTE | 2022-09-14 13:45 | NUR ---
RN NOTE PATIENT TRANSFERRED TO THE [facility] ROOM 103 , WILL CONTINUE TO PROVIDE CARE TO THE PATIENT IN THE [facility] THROUGHT OUT THE SHIFT
--- NOTE | 2022-09-14 18:21 | NUR ---
RN CLOSE NOTE PT IN BED, AWAKE, A&O X1 CONFUSED. PT ON NON-REBREATHER MASK AT 8 LPM WITH CURRENT O2SAT OF 93%. , HR NOTED TO BE ELEVATED AT [address] ON DEMARCO .PATIENT IS ON BILATERAL RESTRAIN , CAUSE KEEP REMOVING HIS 02 MASK AND TRYING TO GET OUT OF BED STATING THAT HE NEEDS TO GET TO THE BANK .PATIENT IS BACK TO SOFT MECHANICAL DIET , BUT DIDN'T EAT AND DIDN'T DRINK TODAY. BED IS IN LOWEST POSITION, CALL LIGHT WITHIN REACH, SIDE RAILS UP X3. WILL ENDORSE BARREL TURNER NURSE TO CONTINUE TO FALLOW POC
--- NOTE | 2022-09-14 19:30 | NUR ---
RN OPENING NOTE PT RECEIVED IN BED, AWAKE, A/O X2, CONFUSED AT TIMES. PT ON SIMPLE MASK AT 8 LPM WITH CURRENT O2 SAT OF >95%. NO S/SX OF ACUTE DISTRESS NOTED AT THIS TIME. IV ACCESS NOTED ON DEMARCO ML,PATENT AND INTACT, RUNNING NS TKO. SOFT WRIST RESTRAINTS IN PLACE ON BILATERAL ARMS. NO CIRCULATION ISSUES NOTED. ALL SAFETY MEASURES IN PLACE : BED IN LOW POSITION,BED ALARM ON, CALL LIGHT WITHIN REACH, SIDE RAILS UP X3. WILL CONTINUE TO MONITOR THROUGHOUT THE NIGHT.
[2022-09-14] MEDS: LATANOPROST EYE DROP 0.005% 2.5 ML BOTTLE EACHEYE SCH (21:03)
[2022-09-14] MEDS: ATORVASTATIN 10 MG TABLET PO SCH (21:03)
[2022-09-15] VITALS: BP 151/90
[2022-09-15] MEDS: IPRATROPIUM NEB FS 0.5 MG/2.5 ML AMPUL.NEB NEB SCH ×4 (01:54→20:04)
[2022-09-15] MEDS: LEVALBUTEROL HCL NEB 1.25 MG/0.5 ML VIAL.NEB NEB SCH ×4 (01:54→20:04)
[2022-09-15 04:00] VITALS: BP 155/90
[2022-09-15] MEDS: methylPREDNISolone SOD SUCC 40 MG/ML VIAL IV SCH ×3 (04:18→21:22)
[2022-09-15] MEDS: DOXYCYCLINE 100 MG in IV D5W 100 ML IV SCH ×2 (04:24→16:40)
[2022-09-15 06:13] LABS: CARBON DIOXIDE 30 mmol/L (21-32); CHLORIDE 112 mmol/L (98-107); CREATININE 1.1 mg/dL (0.6-1.3); GLUCOSE 135 mg/dL (74-106); MAGNESIUM 2.4 mg/dL (1.8-2.4); PHOSPHORUS 4.8 mg/dL (2.5-4.9); POTASSIUM 4.1 mmol/L (3.5-5.1); SODIUM SERUM 149 mmol/L (136-145); UREA NITROGEN, BLOOD 29 mg/dL (7-18)
[2022-09-15 06:14] LABS: HEMATOCRIT 54 % (39-51); HEMOGLOBIN 17.1 g/dL (13.5-17.5); LYMPHOCYTES # (AUTO) 0.2 K/uL (0.8-4.8); LYMPHOCYTES % (AUTO) 1.4 % (20.0-44.0); MEAN CORPUSCULAR HGB CONC 32 g/dl (31.0-36.0); MEAN CORPUSCULAR VOLUME 86 fL (80-96); MONOCYTES # (AUTO) 0.9 K/uL (0.1-1.30); MONOCYTES % (AUTO) 5.3 % (2.0-12.0); NEUTROPHILS # (AUTO) 16.1 K/uL (1.8-8.9); NEUTROPHILS % (AUTO) 93.3 % (43.0-81.0); PLATELET COUNT (AUTO) 261 K/uL (150-450); RED BLOOD CELL COUNT(AUTO) 6.21 MIL/uL (4.5-6.0); WHITE BLOOD COUNT (AUTO) 17.2 K/uL (4.3-11.0)
[2022-09-15] MEDS: ENOXAPARIN SODIUM 80 MG/0.8 ML DISP.SYRIN SQ SCH ×2 (06:44→18:07)
--- NOTE | 2022-09-15 07:30 | NUR ---
SPECIAL FORCES ENGINEER SERGEANT AM NOTES PT IN BED, AWAKE, A/O X2, CONFUSED AT TIMES. PT ON SIMPLE MASK AT 8 LPM WITH CURRENT O2 SAT OF >95%. NO S/SX OF ACUTE DISTRESS NOTED AT THIS TIME. SR OCCASIONAL PVC HR 65, NO SIGN SOF PAIN/DISCOMFORT, IV ACCESS NOTED ON DEMARCO ML,PATENT AND INTACT, RUNNING NS TKO. SITE CLEAR. SOFT WRIST RESTRAINTS IN PLACE ON BILATERAL ARMS. RELEASED. CHECKED FOR CIRCULATION AND PULSE THEN Q 2 HOURS. ALL SAFETY MEASURES IN PLACE : BED IN LOW POSITION,BED ALARM ON, CALL LIGHT WITHIN REACH, SIDE RAILS UP X3. WILL CONTINUE TO MONITOR.
--- NOTE | 2022-09-15 07:36 | NUR ---
MRI APPROVED BY DR. CEDENO,COURT RECORDING MONITOR NOTIFIED.
[2022-09-15 08:00] VITALS: BP 138/80
[2022-09-15] MEDS: PANTOPRAZOLE 40 MG TABLET.DR PO SCH (08:10)
[2022-09-15] MEDS: HYDROXYUREA 500 MG CAPSULE PO SCH ×3 (09:22→23:09)
[2022-09-15] MEDS: hydrALAZINE HCL 50 MG TABLET PO SCH ×3 (09:23→16:41)
[2022-09-15] MEDS: FINASTERIDE (5 MG) 5 MG TABLET PO SCH (09:23)
[2022-09-15] MEDS: TAMSULOSIN 0.4 MG CAP.SR.24H PO SCH (09:23)
[2022-09-15] MEDS: ALLOPURINOL 100 MG TABLET PO SCH ×3 (09:23→16:40)
[2022-09-15] MEDS: NITROGLYCERIN 30 GM TUBE TP SCH ×2 (09:26→21:21)
--- NOTE | 2022-09-15 09:30 | NUR ---
RN NOTES DUE MEDS GIVEN
[2022-09-15 12:00] VITALS: BP 124/63
[2022-09-15 12:02] LABS: BAND % (MANUAL) 5 % (0.0-5.0); LYMPHOCYTES % (MANUAL) 2 % (16-48); MONOCYTES % (MANUAL) 7 % (0-11.0); NEUTROPHILS % (MANUAL) 86 (42-76)
[2022-09-15] MEDS: IV NS 0.9% 250 ML IV PRN (14:47)
[2022-09-15 16:00] VITALS: BP 147/82
--- NOTE | 2022-09-15 18:31 | NUR ---
TIPPLE GREASER CLOSING NOTES PT RESTING IN BED, AWAKE, A/O X2, CONFUSED AT TIMES. PT ON SIMPLE MASK AT 8 LPM WITH CURRENT O2 SAT OF >90%. NO S/SX OF ACUTE DISTRESS NOTED AT THIS TIME. SR OCCASIONAL PVC HR 89, NO SIGN SOF PAIN/DISCOMFORT, IV ACCESS NOTED ON DEMARCO ML,PATENT AND INTACT, RUNNING NS TKO. SITE CLEAR. SOFT WRIST RESTRAINTS IN PLACE ON BILATERAL WRIST. RELEASED. CHECKED FOR CIRCULATION AND PULSE Q 2 HOURS. PERFORMED PM CARE EARLIER. ALL SAFETY MEASURES IN PLACE : BED IN LOW POSITION,BED ALARM ON, CALL LIGHT WITHIN REACH, SIDE RAILS UP X3. ALL NEEDS MET. TURNED AND REPOSITION Q 2 HOURS. WILL ENDORSE TO NEXT SHIFT FOR TRENT UNABLE TO PERFORM MRI HEAD WO DUE TO PATIENT DESATURATING EARLIER. WILL TRY AGAIN TOMORROW. CHECKLIST ON FILE. AWARE.
[2022-09-15 20:00] VITALS: BP 130/70
[2022-09-15] MEDS: LATANOPROST EYE DROP 0.005% 2.5 ML BOTTLE EACHEYE SCH (21:21)
[2022-09-15] MEDS: ATORVASTATIN 10 MG TABLET PO SCH (21:22)
[2022-09-16] VITALS: BP 138/79
[2022-09-16] MEDS: IPRATROPIUM NEB FS 0.5 MG/2.5 ML AMPUL.NEB NEB SCH ×4 (00:39→19:56)
[2022-09-16] MEDS: LEVALBUTEROL HCL NEB 1.25 MG/0.5 ML VIAL.NEB NEB SCH ×4 (00:39→19:56)
[2022-09-16 04:00] VITALS: BP 138/79
[2022-09-16] MEDS: methylPREDNISolone SOD SUCC 40 MG/ML VIAL IV SCH ×3 (04:56→21:35)
[2022-09-16] MEDS: DOXYCYCLINE 100 MG in IV D5W 100 ML IV SCH (04:57)
[2022-09-16] MEDS: ENOXAPARIN SODIUM 80 MG/0.8 ML DISP.SYRIN SQ SCH ×2 (06:05→18:52)
--- NOTE | 2022-09-16 06:14 | NUR ---
RN CLOSING NOTE PT RECEIVED IN BED, AWAKE, A/O X2. VERBALLY RESPONSIVE. PT ON SIMPLE MASK AT 8 LPM WITH CURRENT O2 SAT OF >95%. NO S/SX OF ACUTE DISTRESS NOTED AT THIS TIME. IV ACCESS NOTED ON DEMARCO ML,PATENT AND INTACT, RUNNING NS TKO. SOFT WRIST RESTRAINTS IN PLACE ON BILATERAL ARMS. NO CIRCULATION ISSUES NOTED. ALL SAFETY MEASURES IN PLACE : BED IN LOW POSITION,BED ALARM ON, CALL LIGHT WITHIN REACH, SIDE RAILS UP X3. WILL CONTINUE TO MONITOR THROUGHOUT THE NIGHT.
--- NOTE | 2022-09-16 06:15 | NUR ---
RN NOTE ALL DUE MEDS GIVEN. NEEDS ATTENDED TO. PT REMAINED STABLE T/O THE NIGHT. WILL ENDORSE TO AM SHIFT NURSE FOR TRENT.
[2022-09-16 06:52] LABS: HEMATOCRIT 56 % (39-51); HEMOGLOBIN 17.8 g/dL (13.5-17.5); LYMPHOCYTES # (AUTO) 0.1 K/uL (0.8-4.8); LYMPHOCYTES % (AUTO) 0.8 % (20.0-44.0); MEAN CORPUSCULAR HGB CONC 32 g/dl (31.0-36.0); MEAN CORPUSCULAR VOLUME 86 fL (80-96); MONOCYTES % (AUTO) 5.7 % (2.0-12.0); NEUTROPHILS # (AUTO) 16.5 K/uL (1.8-8.9); NEUTROPHILS % (AUTO) 93.5 % (43.0-81.0); PLATELET COUNT (AUTO) 236 K/uL (150-450); RED BLOOD CELL COUNT(AUTO) 6.54 MIL/uL (4.5-6.0); WHITE BLOOD COUNT (AUTO) 17.7 K/uL (4.3-11.0)
--- NOTE | 2022-09-16 07:10 | NUR ---
PERSONNEL COORDINATOR OPENING NOTE RECEIVED PT IN BED RESTING IN BED, AWAKE, A/O X2, CONFUSED AT TIMES. PT ON SIMPLE MASK AT 8 LPM WITH CURRENT O2 SAT OF 93%. NO S/SX OF ACUTE DISTRESS NOTED AT THIS TIME. TELE MONITOR SR HR 89 NO SIGN SOF PAIN/DISCOMFORT, IV ACCESS NOTED ON DEMARCO ML,PATENT AND INTACT. BILATERAL SOFT WRIST RESTRAINTS AT BEDSIDE. ALL SAFETY MEASURES IN PLACE; BED LOCKED IN LOW POSITION, BED ALARM ON, CALL LIGHT WITHIN REACH, SIDE RAILS UP X3. WILL CONTINUE TO MONITOR THROUGHOUT SHIFT.
[2022-09-16 07:42] LABS: CARBON DIOXIDE 28 mmol/L (21-32); CHLORIDE 111 mmol/L (98-107); GLUCOSE 142 mg/dL (74-106); MAGNESIUM 2.7 mg/dL (1.8-2.4); PHOSPHORUS 3.9 mg/dL (2.5-4.9); POTASSIUM 4.2 mmol/L (3.5-5.1); SODIUM SERUM 147 mmol/L (136-145); UREA NITROGEN, BLOOD 33 mg/dL (7-18)
[2022-09-16 08:00] VITALS: BP 159/97
[2022-09-16] MEDS: PANTOPRAZOLE 40 MG TABLET.DR PO SCH (08:09)
[2022-09-16] MEDS: ALLOPURINOL 100 MG TABLET PO SCH ×3 (08:39→17:43)
[2022-09-16] MEDS: HYDROXYUREA 500 MG CAPSULE PO SCH ×2 (08:39→17:44)
[2022-09-16] MEDS: hydrALAZINE HCL 50 MG TABLET PO SCH ×3 (08:39→17:43)
[2022-09-16] MEDS: FINASTERIDE (5 MG) 5 MG TABLET PO SCH (08:39)
[2022-09-16] MEDS: TAMSULOSIN 0.4 MG CAP.SR.24H PO SCH (08:39)
[2022-09-16] MEDS: NITROGLYCERIN 30 GM TUBE TP SCH ×2 (08:39→21:36)
[2022-09-16 12:00] VITALS: BP 148/82
[2022-09-16] MEDS ORDERED: HYDROXYUREA 500 MG CAPSULE PO ONE (12:30)
--- NOTE | 2022-09-16 14:23 | NUR ---
KAHLIL HERNANDEZ WITH MRI CREW, CALLED TO NOTIFY THAT PT WILL BE PICKED UP FOR MRI.
--- NOTE | 2022-09-16 14:42 | NUR ---
RN NOTE HAL CAME TO SIGNALMAN PT FOR MRI ON [facility]. ANTICIPATED RETURN TIME 1531
--- NOTE | 2022-09-16 15:38 | NUR ---
RN NOTE PT RETURNED FROM MRI
--- NOTE | 2022-09-16 15:57 | NUR ---
RN NOTE NOTIFIED DR FREYA CUEVAS OF MRI RESULTS. Addendum: 09/16/22 at 1612 by GERARDO ANN RN RN NOTE NOTIFIED MD SY
[2022-09-16 16:00] VITALS: BP 149/54
--- NOTE | 2022-09-16 19:15 | NUR ---
JOINERS SUPERVISOR OPENING NOTE RECEIVED PT IN BED AWAKE, A/O X2, CONFUSED AT TIMES. PT ON SIMPLE MASK AT 8 LPM WITH CURRENT O2 SAT OF 96%. NO S/S OF ACUTE DISTRESS, TELE MONITOR SR HR 88, IV ACCESS NOTED ON DEMARCO ML,PATENT AND INTACT. ALL SAFETY MEASURES IN PLACE; BED LOCKED IN LOW POSITION, BED ALARM ON, CALL LIGHT WITHIN REACH, SIDE RAILS UP X3. WILL CONTINUE TO MONITOR THROUGHOUT SHIFT.
--- NOTE | 2022-09-16 19:43 | NUR ---
GUM MIXER CLOSING NOTE PT IN BED RESTING IN BED, AWAKE, A/O X3. PT ON SIMPLE MASK AT 8 LPM WITH CURRENT O2 SAT OF 94%. NO S/SX OF ACUTE DISTRESS NOTED AT THIS TIME. TELE MONITOR SR HR 85 NO SIGN SOF PAIN/DISCOMFORT, IV ACCESS NOTED ON DEMARCO ML, PATENT AND INTACT. ALL SAFETY MEASURES IN PLACE; BED LOCKED IN LOW POSITION, BED ALARM ON, CALL LIGHT WITHIN REACH, SIDE RAILS UP X3. WILL ENDORSE CONTINUITY OF CARE TO GAS ENGINE OPERATOR.
[2022-09-16 20:00] VITALS: BP 120/77
[2022-09-16] MEDS: ASPIRIN 81 MG TAB.CHEW PO SCH (20:38)
[2022-09-16 21:22] LABS: BAND % (MANUAL) 5 % (0.0-5.0); LYMPHOCYTES % (MANUAL) 3 % (16-48); NEUTROPHILS % (MANUAL) 92 (42-76)
[2022-09-16] MEDS: LATANOPROST EYE DROP 0.005% 2.5 ML BOTTLE EACHEYE SCH (21:35)
[2022-09-16] MEDS: ATORVASTATIN 10 MG TABLET PO SCH (21:37)
[2022-09-17] VITALS: BP 112/49
[2022-09-17] MEDS: LEVALBUTEROL HCL NEB 1.25 MG/0.5 ML VIAL.NEB NEB SCH ×4 (02:10→19:49)
[2022-09-17] MEDS: IPRATROPIUM NEB FS 0.5 MG/2.5 ML AMPUL.NEB NEB SCH ×4 (02:11→19:49)
[2022-09-17 04:00] VITALS: BP 147/87
[2022-09-17] MEDS: methylPREDNISolone SOD SUCC 40 MG/ML VIAL IV SCH ×3 (05:28→22:14)
--- NOTE | 2022-09-17 07:08 | NUR ---
DRAW FRAME OPERATOR CLOSING NOTE PT IN BED AWAKE, A/O X2, CONFUSED AT TIMES. PT ON SIMPLE MASK AT 8 LPM WITH CURRENT O2 SAT OF 96%. NO S/S OF ACUTE DISTRESS, TELE MONITOR SR HR 88, IV ACCESS NOTED ON DEMARCO ML,PATENT AND INTACT.ALL DUE MEDS GIVEN.ALL SAFETY MEASURES IN PLACE; BED LOCKED IN LOW POSITION, BED ALARM ON, CALL LIGHT WITHIN REACH, SIDE RAILS UP X3. WILL ENDORSE TO MORNING NURSE FOR TRENT.
[2022-09-17 07:09] LABS: BASOPHILS % (AUTO) 0.1 % (0.0-2.0); HEMATOCRIT 56 % (39-51); HEMOGLOBIN 17.7 g/dL (13.5-17.5); LYMPHOCYTES # (AUTO) 0.2 K/uL (0.8-4.8); MEAN CORPUSCULAR HGB CONC 31 g/dl (31.0-36.0); MEAN CORPUSCULAR VOLUME 87 fL (80-96); MONOCYTES % (AUTO) 5.6 % (2.0-12.0); NEUTROPHILS # (AUTO) 15.9 K/uL (1.8-8.9); NEUTROPHILS % (AUTO) 93.3 % (43.0-81.0); PLATELET COUNT (AUTO) 177 K/uL (150-450); RED BLOOD CELL COUNT(AUTO) 6.44 MIL/uL (4.5-6.0); WHITE BLOOD COUNT (AUTO) 17.1 K/uL (4.3-11.0)
[2022-09-17] MEDS: ENOXAPARIN SODIUM 80 MG/0.8 ML DISP.SYRIN SQ SCH ×2 (07:12→18:10)
--- NOTE | 2022-09-17 07:33 | NUR ---
CHIEF ENGINEER PRODUCTION NOTE PT IN BED AWAKE, A/O X2, CONFUSED AT TIMES. PT ON SIMPLE MASK AT 8 LPM NO S/S OF ACUTE DISTRESS,NO SOB AT THIS TIME BUT NOTED OCCASIONAL COUGH ,TELE MONITOR SR HR 84, IV ACCESS NOTED ON DEMARCO ML ,SAFETY MEASURES IN PLACE; BED LOCKED IN LOW POSITION, BED ALARM ON, CALL LIGHT WITHIN REACH, SIDE RAILS UP. WILL CONT TO MONITOR CLOSELY
[2022-09-17 08:00] VITALS: BP 162/87
[2022-09-17] MEDS: ASPIRIN 81 MG TAB.CHEW PO SCH (08:06)
[2022-09-17] MEDS: ALLOPURINOL 100 MG TABLET PO SCH ×3 (08:06→16:14)
[2022-09-17] MEDS: PANTOPRAZOLE 40 MG TABLET.DR PO SCH (08:06)
[2022-09-17] MEDS: FINASTERIDE (5 MG) 5 MG TABLET PO SCH (08:06)
[2022-09-17] MEDS: HYDROXYUREA 500 MG CAPSULE PO SCH ×3 (08:06→16:14)
[2022-09-17] MEDS: TAMSULOSIN 0.4 MG CAP.SR.24H PO SCH (08:07)
[2022-09-17] MEDS: hydrALAZINE HCL 50 MG TABLET PO SCH ×3 (08:07→16:14)
[2022-09-17] MEDS: NITROGLYCERIN 30 GM TUBE TP SCH ×2 (08:08→22:15)
--- NOTE | 2022-09-17 10:35 | NUR ---
RESPIRATORY CARE PROGRAM DIRECTOR NOTE TRYING TO REMOVE O2 MASKS, AT AT RISK TO FALL ,TRYING TO GET OUT OFF BED ,STAY WITH PATIENT AND EXPLAINED NOT GET OUT OFF BED STILL NONCOMPLIANT ,SPOKE WITH DR SOSA OK TO APPLY SOFT RESTRAIN , SPOKE WITH SON LORENA EMPLANED ABOUT OF RESTRAIN STATED OK TO PLACE
--- NOTE | 2022-09-17 11:34 | NUR ---
JOINERY SETTER OUT NOTE PER DR DEANGELO [place] TO ORDER PT ALSO GAVE PHONE NUMBER OF SON TO DISCUSSED MRI RESULT PER SON REQUEST
[2022-09-17 12:00] VITALS: BP 152/89
--- NOTE | 2022-09-17 12:14 | NUR ---
telephone interceptor operator note turn reposition keep clean dry ,all need attended
--- NOTE | 2022-09-17 14:00 | NUR ---
telecine operator note noted very congested with coughing , rt called to do suction large amt of secretion obtained , placed on nc 8l saturation 93% will monitor
--- NOTE | 2022-09-17 15:14 | NUR ---
telecommunications field engineer note still congested despite suction , called to dr salcido notified that patient still very congested ordered Lasix 40 mg iv time one ,order carried out
--- NOTE | 2022-09-17 15:23 | NUR ---
telegraph plant maintainer note Lasix 40 mg ivp time one given as ordered ,will monitor
[2022-09-17] MEDS ORDERED: FUROSEMIDE 40 MG/4 ML VIAL IV ONE (15:30)
[2022-09-17 16:00] VITALS: BP 158/84
--- NOTE | 2022-09-17 16:15 | NUR ---
manager telemarketing note after Lasix was give urinate well , full diaper changed x3, keep clean dry
--- NOTE | 2022-09-17 16:27 | NUR ---
telephone station repairer note dr aguirre neurologist at beside patient condition updated aware that patient still with chest congestion
--- NOTE | 2022-09-17 17:37 | NUR ---
HEALTH SAFETY SPECIALIST NOTE RT AT BEDSIDE, PLACED BACK TO SIMPLE MASK DUE TO SATURATION 88% , PLACED 10 L BY SIMPLE MASK AND SATURATION 91% WILL MONITOR CLOSELY
--- NOTE | 2022-09-17 17:54 | NUR ---
RT Attempted to titrate Fi02 throughout shift (NC 6 LPM). Pt aware and alert. Placed back on SM 10 LPM due to desaturation. Will continue to monitor. RN aware
--- NOTE | 2022-09-17 18:25 | NUR ---
SUPERVISOR MACHINING NOTE PATIENT IN BED, ALERT WITH SOME CONFUSION , ON 10L SIMPLE MASK ,SATURATION 91% AT THIS TIME, FAMILY AT BEDSIDE REFUSED TO EAT DINNER, STILL WITH MOD AMT SECRETION SUCTION DONE NEEDED, ON TELE MONITOR SR HR 99, AT THIS TIME, ,RELEASED SOFT RESTRAIN AT THIS TIME DUR TO FAMILY AT BEDSIDE , RT UPPER ARM MID LINE IN PLACE AND FLUSHED WELL , BED IN LOWEST AND LOCKED POSITION , SAFETY MEASURE IMPLEMENTED WILL CONT TO MONITOR
[2022-09-17 18:53] LABS: BAND % (MANUAL) 2 % (0.0-5.0); LYMPHOCYTES % (MANUAL) 4 % (16-48); MONOCYTES % (MANUAL) 2 % (0-11.0); NEUTROPHILS % (MANUAL) 92 (42-76)
[2022-09-17] MEDS ORDERED: HYDROXYUREA 500 MG CAPSULE PO SCH (19:00)
[2022-09-17 20:00] VITALS: BP 139/78
--- NOTE | 2022-09-17 20:00 | NUR ---
PUBLIC HEALTH DIETITIAN NOTE PATIENT IN BED, ALERT WITH SOME CONFUSION , ON 10L SIMPLE MASK ,SATURATION 92% , NO SOB NO DISTRESS NOTED, PTS STILL NOTED WITH CONGESTION STILL WITH MOD AMT SECRETION SUCTION DONE NEEDED, ON TELE MONITOR SR HR 104 AT THIS TIME, ON ZAID SOFT WRIST RESTRAINT TO PREVENT FROM PULLING INVASIVE TUBING , RT UPPER ARM MID LINE IN PLACE AND FLUSHED WELL , BED IN LOWEST AND LOCKED POSITION , SAFETY MEASURE IMPLEMENTED, WILL CONT TO MONITOR
[2022-09-17] MEDS: ATORVASTATIN 10 MG TABLET PO SCH (22:13)
[2022-09-17] MEDS: LATANOPROST EYE DROP 0.005% 2.5 ML BOTTLE EACHEYE SCH (22:13)
[2022-09-18 00:01] VITALS: BP 147/86
[2022-09-18] MEDS: IPRATROPIUM NEB FS 0.5 MG/2.5 ML AMPUL.NEB NEB SCH ×4 (02:03→20:26)
[2022-09-18] MEDS: LEVALBUTEROL HCL NEB 1.25 MG/0.5 ML VIAL.NEB NEB SCH ×4 (02:03→20:26)
[2022-09-18 04:00] VITALS: BP 128/82
[2022-09-18] MEDS: methylPREDNISolone SOD SUCC 40 MG/ML VIAL IV SCH ×3 (05:17→15:43)
[2022-09-18] MEDS: ENOXAPARIN SODIUM 80 MG/0.8 ML DISP.SYRIN SQ SCH ×2 (07:07→18:44)
--- NOTE | 2022-09-18 07:24 | NUR ---
MEAT AND SEAFOOD CLERK CLOSING NOTE PT IN BED AWAKE, , CONFUSED PT ON SIMPLE MASK AT 8 LPM WITH CURRENT O2 SAT OF 96%. NO S/S OF ACUTE DISTRESS, TELE MONITOR SR HR 88, IV ACCESS NOTED ON DEMARCO ML,PATENT AND INTACT.PATIENT HAS BILATERAL HANDS RESTRAINED . SAFETY MEASURES IN PLACE; BED LOCKED IN LOW POSITION, BED ALARM ON, CALL LIGHT WITHIN REACH, SIDE RAILS UP X3. WILL ECONTINUE TO MONITOR AND FALLOW THE POC.
--- NOTE | 2022-09-18 07:25 | NUR ---
QUICK PRINT OPERATOR NOTE PATIENT REMAIN IN BED, CONFUSED AND AGITATED. ON BILATERAL SOFT WRIST RESTRAINT .ON 10L SIMPLE MASK ,SATURATION 95% AT THIS TIME, ON TELE MONITOR SR HR 97, AT THIS TIME, RT UPPER ARM MID LINE IN PLACE AND FLUSHED WELL , BED IN LOWEST AND LOCKED POSITION , SAFETY MEASURE IMPLEMENTED WILL ENDORSE TO RN DAY SHIFT FOR CONTINUITY OF CARE.
[2022-09-18] MEDS: PANTOPRAZOLE 40 MG TABLET.DR PO SCH (07:43)
[2022-09-18 08:43] LABS: BASOPHILS # (AUTO) 0.1 K/uL (0.0-0.2); BASOPHILS % (AUTO) 0.5 % (0.0-2.0); HEMATOCRIT 53 % (39-51); HEMOGLOBIN 16.8 g/dL (13.5-17.5); LYMPHOCYTES # (AUTO) 0.1 K/uL (0.8-4.8); LYMPHOCYTES % (AUTO) 0.5 % (20.0-44.0); MEAN CORPUSCULAR HGB CONC 32 g/dl (31.0-36.0); MEAN CORPUSCULAR VOLUME 86 fL (80-96); MONOCYTES # (AUTO) 0.4 K/uL (0.1-1.30); MONOCYTES % (AUTO) 2.3 % (2.0-12.0); NEUTROPHILS # (AUTO) 17.9 K/uL (1.8-8.9); NEUTROPHILS % (AUTO) 96.7 % (43.0-81.0); PLATELET COUNT (AUTO) 210 K/uL (150-450); RED BLOOD CELL COUNT(AUTO) 6.15 MIL/uL (4.5-6.0); WHITE BLOOD COUNT (AUTO) 18.6 K/uL (4.3-11.0)
[2022-09-18 08:55] LABS: CALCIUM, SERUM 8.2 mg/dL (8.5-10.1); MAGNESIUM 2.4 mg/dL (1.8-2.4); PHOSPHORUS 3.1 mg/dL (2.5-4.9)
[2022-09-18 09:00] VITALS: BP 175/106
[2022-09-18] MEDS: HYDROXYUREA 500 MG CAPSULE PO SCH ×2 (09:12→16:53)
[2022-09-18] MEDS: FINASTERIDE (5 MG) 5 MG TABLET PO SCH (09:12)
[2022-09-18] MEDS: TAMSULOSIN 0.4 MG CAP.SR.24H PO SCH (09:13)
[2022-09-18] MEDS: hydrALAZINE HCL 50 MG TABLET PO SCH ×3 (09:13→16:53)
[2022-09-18] MEDS: ALLOPURINOL 100 MG TABLET PO SCH ×3 (09:13→16:53)
[2022-09-18] MEDS: ASPIRIN 81 MG TAB.CHEW PO SCH (09:14)
[2022-09-18] MEDS: NITROGLYCERIN 30 GM TUBE TP SCH ×2 (09:18→21:11)
[2022-09-18] MEDS: Z GUARD REMEDY 4 OZ OINT TP SCH (09:18)
[2022-09-18 12:00] VITALS: BP 157/101
[2022-09-18] MEDS ORDERED: LORAZEPAM INJ 2 MG/ML VIAL IV PRN (13:30)
[2022-09-18 16:00] VITALS: BP 144/77
--- NOTE | 2022-09-18 18:45 | NUR ---
DIET CLERK CLOSING NOTE PT IN BED AWAKE, , CONFUSED PT ON SIMPLE MASK AT 10 LPM WITH CURRENT O2 SAT OF 89%. NO S/S OF ACUTE DISTRESS, TELE MONITOR SR HR 88, IV ACCESS NOTED ON DEMARCO ML,PATENT AND INTACT.PATIENT HAS BILATERAL HANDS RESTRAINED . SAFETY MEASURES IN PLACE; BED LOCKED IN LOW POSITION, BED ALARM ON, CALL LIGHT WITHIN REACH, SIDE RAILS UP X3. WILL ENDORSE WAX MOLDER NURSE TO MONITOR AND FALLOW THE POC.
[2022-09-18 18:48] LABS: ABG BASE EXCESS 3.5 mmol/L; ABG OXYGEN SATURATION 93.7 % (92.0-98.5); ABG PCO2 46.7 mmHg (35.0-45.0); ABG PH 7.411 (7.350-7.450); ABG PO2 70.7 mmHg (75.0-100.0); AaDO2 233.3 mmHg; COHb 0.8 % (0.5-1.5); MetHb 0.4 % (0.0-1.5); O2Hb 92.6 % (94.0-97.0); SITE, ABG Right Radial; VENT MODE, BG simple mask
--- NOTE | 2022-09-18 19:30 | NUR ---
RN OPENING NOTE RECEIVED PATIENT IN BED, ASLEEP. CURRENTLY ON 8L SIMPLE MASK, SATING AT 98%. NO SOB, NO ACUTE RESPI DISTRESS NOTED AT THIS TIME, PT STILL NOTED TO HAVE CONGESTION WITH MODERATE AMT OF SECRETION. SUCTION DONE NEEDED, ON TELE MONITOR SR HR 70s. IV ACCESS IN RT UPPER ARM MID LINE IN PLACE, INTACT AND PATENT. ON ZAID SOFT WRIST RESTRAINTS, NO CIRCULATION ISSUES NOTED. ALL SAFETY MEASURES IN PLACE: BED IN LOWEST AND LOCKED POSITION , BED ALARM ON, SR UP X 3, CALL LIGHT WITHIN REACH. WILL CONT TO MONITOR.
[2022-09-18 20:00] VITALS: BP 127/70
[2022-09-18] MEDS: ATORVASTATIN 10 MG TABLET PO SCH (21:10)
[2022-09-18] MEDS: LATANOPROST EYE DROP 0.005% 2.5 ML BOTTLE EACHEYE SCH (21:10)
[2022-09-18 22:10] LABS: BAND % (MANUAL) 4 % (0.0-5.0); LYMPHOCYTES % (MANUAL) 2 % (16-48); MONOCYTES % (MANUAL) 1 % (0-11.0); NEUTROPHILS % (MANUAL) 93 (42-76)
[2022-09-19] VITALS: BP 119/70
[2022-09-19] MEDS: IPRATROPIUM NEB FS 0.5 MG/2.5 ML AMPUL.NEB NEB SCH ×4 (01:42→19:57)
[2022-09-19] MEDS: LEVALBUTEROL HCL NEB 1.25 MG/0.5 ML VIAL.NEB NEB SCH ×4 (01:42→19:57)
[2022-09-19 04:00] VITALS: BP 120/66
[2022-09-19] MEDS: ENOXAPARIN SODIUM 80 MG/0.8 ML DISP.SYRIN SQ SCH ×2 (06:09→18:33)
[2022-09-19 06:22] LABS: BASOPHILS # (AUTO) 0.2 K/uL (0.0-0.2); BASOPHILS % (AUTO) 1.3 % (0.0-2.0); HEMATOCRIT 46 % (39-51); HEMOGLOBIN 14.6 g/dL (13.5-17.5); LYMPHOCYTES # (AUTO) 0.2 K/uL (0.8-4.8); LYMPHOCYTES % (AUTO) 1.7 % (20.0-44.0); MEAN CORPUSCULAR HGB CONC 32 g/dl (31.0-36.0); MEAN CORPUSCULAR VOLUME 86 fL (80-96); MONOCYTES # (AUTO) 0.7 K/uL (0.1-1.30); MONOCYTES % (AUTO) 4.5 % (2.0-12.0); NEUTROPHILS # (AUTO) 13.6 K/uL (1.8-8.9); NEUTROPHILS % (AUTO) 92.5 % (43.0-81.0); PLATELET COUNT (AUTO) 220 K/uL (150-450); RED BLOOD CELL COUNT(AUTO) 5.31 MIL/uL (4.5-6.0); WHITE BLOOD COUNT (AUTO) 14.7 K/uL (4.3-11.0)
--- NOTE | 2022-09-19 06:29 | NUR ---
RN NOTE PT WAS ASLEEP AND OUT THE WHOLE NIGHT. VS REMAINED STABLE. O2 SAT AT >97%. ON SIMPLE MASK AT 8LPM. ALL DUE MEDS GIVEN. TURNED AND REPOSITIONED. WILL ENDORSE TO AM SHIFT NURSE FOR TRENT.
[2022-09-19 06:46] LABS: CALCIUM, SERUM 8.6 mg/dL (8.5-10.1); MAGNESIUM 2.6 mg/dL (1.8-2.4); PHOSPHORUS 3.9 mg/dL (2.5-4.9); POTASSIUM 4.2 mmol/L (3.5-5.1)
[2022-09-19] MEDS: PANTOPRAZOLE 40 MG TABLET.DR PO SCH (07:58)
[2022-09-19 08:00] VITALS: BP 128/75
[2022-09-19] MEDS: methylPREDNISolone SOD SUCC 40 MG/ML VIAL IV SCH (09:14)
[2022-09-19] MEDS: hydrALAZINE HCL 50 MG TABLET PO SCH (09:16)
[2022-09-19] MEDS: HYDROXYUREA 500 MG CAPSULE PO SCH (09:16)
[2022-09-19] MEDS: ALLOPURINOL 100 MG TABLET PO SCH (09:16)
[2022-09-19] MEDS: NITROGLYCERIN 30 GM TUBE TP SCH ×2 (09:16→21:54)
[2022-09-19] MEDS: ASPIRIN 81 MG TAB.CHEW PO SCH (09:17)
[2022-09-19] MEDS: TAMSULOSIN 0.4 MG CAP.SR.24H PO SCH (09:17)
[2022-09-19] MEDS: FINASTERIDE (5 MG) 5 MG TABLET PO SCH (09:17)
[2022-09-19] MEDS: Z GUARD REMEDY 4 OZ OINT TP SCH (09:36)
[2022-09-19 12:00] VITALS: BP 98/58
[2022-09-19] MEDS: ENSURE ENLIVE CHOC 237 ML CAN PO SCH ×2 (12:25→17:00)
[2022-09-19] MEDS ORDERED: PHARMACY TO CHANGE PO MEDS TO GT/NG IV PRN (15:00)
[2022-09-19] MEDS ORDERED: QUETIAPINE FUMARATE 25 MG TABLET GT PRN (15:06)
[2022-09-19] MEDS ORDERED: MAGNESIUM HYDROXIDE 30 ML UDC GT PRN (15:06)
[2022-09-19] MEDS ORDERED: HYDROCODONE/APAP 5/325MG TABLET GT PRN (15:06)
--- NOTE | 2022-09-19 15:19 | NUR ---
RN NOTE RECEIVED VERBAL ORDER FROM DR SOSA TO CHANGE PO MEDS TO IV.
[2022-09-19] MEDS ORDERED: ACETAMINOPHEN 650 MG/20.3 ML UDC GT PRN (15:30)
[2022-09-19] MEDS ORDERED: ACETAMINOPHEN 650 MG/20.3 ML UDC PO PRN (15:30)
[2022-09-19] MEDS ORDERED: LORAZEPAM INJ 2 MG/ML VIAL IV PRN (15:30)
[2022-09-19 16:00] VITALS: BP 108/58
[2022-09-19] MEDS: ALLOPURINOL 100 MG TABLET GT SCH (17:00)
[2022-09-19] MEDS ORDERED: HYDROXYUREA 500 MG CAPSULE PO SCH (17:00)
[2022-09-19] MEDS: hydrALAZINE HCL 50 MG TABLET GT SCH (17:00)
[2022-09-19] MEDS: HYDROXYUREA 500 MG CAPSULE GT SCH (17:00)
--- NOTE | 2022-09-19 18:13 | NUR ---
RN NOTE SPOKE TO PHARMACY, WAITING FOR PO MEDS ROUTE TO CHANGE TO IV, PER DR SOSA ORDER
[2022-09-19] MEDS ORDERED: hydrALAZINE HCL IV 20 MG VIAL IV PRN (18:30)
[2022-09-19 20:00] VITALS: BP 107/60
--- NOTE | 2022-09-19 20:00 | NUR ---
INTERVENTION ANALYST NOTE PATIENT IN BED, ALERT x1-2 CONFUSed, ON 8l SIMPLE MASK ,SATURATION 97% , NO SOB NO DISTRESS NOTED, npo status STILL WITH MOD AMT SECRETION SUCTION DONE NEEDED, ON TELE MONITOR SR HR 104 AT THIS TIME, RT UPPER ARM MID LINE IN PLACE AND FLUSHED WELL , BED IN LOWEST AND LOCKED POSITION , SAFETY MEASURE IMPLEMENTED, WILL CONT TO MONITOR
--- NOTE | 2022-09-19 20:20 | NUR ---
PARACHUTE SUPERVISOR CLOSING NOTE PT IN BED AOX3 ON SIMPLE MASK AT 8 LPM WITH CURRENT O2 SAT OF 95%. NO S/S OF ACUTE DISTRESS, TELE MONITOR SR HR 76, IV ACCESS NOTED ON DEMARCO ML,PATENT AND INTACT. ALL SAFETY MEASURES IN PLACE; BED LOCKED IN LOW POSITION, BED ALARM ON, CALL LIGHT WITHIN REACH, SIDE RAILS UP X3. WILL ENDORSE CONTINUITY OF CARE TO RADIO TOWER TECHNICIAN NURSE
[2022-09-19] MEDS: ATORVASTATIN 10 MG TABLET GT SCH (21:09)
[2022-09-19] MEDS: LATANOPROST EYE DROP 0.005% 2.5 ML BOTTLE EACHEYE SCH (21:51)
--- NOTE | 2022-09-19 23:49 | NUR ---
telecommunications administrator notes Pts noted removing 0s mask ,spoke to inpatient services rn mendel bilateral soft wrist restraint renewed ,will continue to monitor pts.
[2022-09-20] VITALS: BP 116/70
[2022-09-20] MEDS: IPRATROPIUM NEB FS 0.5 MG/2.5 ML AMPUL.NEB NEB SCH ×4 (02:11→20:11)
[2022-09-20] MEDS: LEVALBUTEROL HCL NEB 1.25 MG/0.5 ML VIAL.NEB NEB SCH ×4 (02:11→20:11)
[2022-09-20 04:00] VITALS: BP 120/63
[2022-09-20] MEDS: ENOXAPARIN SODIUM 80 MG/0.8 ML DISP.SYRIN SQ SCH ×2 (06:06→20:22)
--- NOTE | 2022-09-20 06:34 | NUR ---
WET MACHINE CUTTER CLOSING NOTE PT REMAIN IN BED AOX1 ON SIMPLE MASK AT 8 LPM WITH CURRENT O2 SAT OF 95%. NO S/S OF ACUTE DISTRESS, TELE MONITOR SR HR 74, IV ACCESS NOTED ON DEMARCO ML,PATENT AND INTACT REMAINS NPO . ALL SAFETY MEASURES IN PLACE; BED LOCKED IN LOW POSITION, BED ALARM ON, CALL LIGHT WITHIN REACH, SIDE RAILS UP X3. WILL ENDORSE CONTINUITY OF CARE TO AM SHIFT NURSE
--- NOTE | 2022-09-20 07:30 | NUR ---
television host opening note received pt in bed, asleep.pt is on 10 L simple face mask saturating at 96%. no signs of pain or discomofrt at this time. PT HAS R UA MIDLINE.INTACT, IN PLACE AND FLUSHING WELL. PT ON BILATERAL SOFT WRIST RESTRAINTS. NO SKIN CIRCULATION ISSUES NOTED AT THIS TIME. ALL SAFETY MEASURES IN PLACE. CALL LIGHT WITHIN REACH.BED LOCKED AT LOWEST POSITION. BED ALARM ON, SIDE RAILS UP X2..
--- NOTE | 2022-09-20 07:42 | NUR ---
RECEIVED ON 10 LPM O2 FLOW VIA SIMPLE MASK WITH 93% SPO2. Addendum: 09/20/22 at 0742 by GISELLE WHELAN RT Amended: Links added.
[2022-09-20 08:00] VITALS: BP 136/87
[2022-09-20] MEDS: ENSURE ENLIVE CHOC 237 ML CAN PO SCH ×2 (08:00→17:00)
[2022-09-20] MEDS: PANTOPRAZOLE 40 MG VIAL IV SCH (08:03)
[2022-09-20] MEDS: methylPREDNISolone SOD SUCC 40 MG/ML VIAL IV SCH (08:51)
[2022-09-20] MEDS: hydrALAZINE HCL 50 MG TABLET GT SCH ×3 (09:00→17:00)
[2022-09-20] MEDS: TAMSULOSIN 0.4 MG CAP.SR.24H GT SCH (09:00)
[2022-09-20] MEDS: HYDROXYUREA 500 MG CAPSULE GT SCH (09:00)
[2022-09-20] MEDS: FINASTERIDE (5 MG) 5 MG TABLET GT SCH (09:00)
[2022-09-20] MEDS: ALLOPURINOL 100 MG TABLET GT SCH ×3 (09:00→17:00)
[2022-09-20] MEDS: ASPIRIN 81 MG TAB.CHEW GT SCH (09:00)
[2022-09-20] MEDS: NITROGLYCERIN 30 GM TUBE TP SCH ×2 (11:15→20:23)
[2022-09-20 12:00] VITALS: BP 139/76
[2022-09-20 14:46] LABS: BASOPHILS % (AUTO) 0.4 % (0.0-2.0); HEMATOCRIT 42 % (39-51); HEMOGLOBIN 13.3 g/dL (13.5-17.5); LYMPHOCYTES # (AUTO) 0.1 K/uL (0.8-4.8); LYMPHOCYTES % (AUTO) 1.1 % (20.0-44.0); MEAN CORPUSCULAR HGB CONC 32 g/dl (31.0-36.0); MEAN CORPUSCULAR VOLUME 86 fL (80-96); MONOCYTES # (AUTO) 0.3 K/uL (0.1-1.30); MONOCYTES % (AUTO) 3.1 % (2.0-12.0); NEUTROPHILS # (AUTO) 10.3 K/uL (1.8-8.9); NEUTROPHILS % (AUTO) 95.4 % (43.0-81.0); PLATELET COUNT (AUTO) 260 K/uL (150-450); RED BLOOD CELL COUNT(AUTO) 4.85 MIL/uL (4.5-6.0); WHITE BLOOD COUNT (AUTO) 10.8 K/uL (4.3-11.0)
[2022-09-20 15:19] LABS: CALCIUM, SERUM 8.3 mg/dL (8.5-10.1); CREATININE 0.9 mg/dL (0.6-1.3); MAGNESIUM 2.7 mg/dL (1.8-2.4); PHOSPHORUS 2.7 mg/dL (2.5-4.9); POTASSIUM 4.2 mmol/L (3.5-5.1)
[2022-09-20 15:20] LABS: URIC ACID 6.1 mg/dL (2.6-7.2)
--- NOTE | 2022-09-20 15:31 | NUR ---
rn note family at bedside.provided updates
[2022-09-20 16:00] VITALS: BP 119/67
[2022-09-20] MEDS: Z GUARD REMEDY 4 OZ OINT TP SCH (18:21)
--- NOTE | 2022-09-20 19:40 | NUR ---
RN OPENING NOTES: RECEIVED PT IN BED, AWAKE, ALERT AND ORIENTED X 1-2 AND VERBALLY RESPONSIVE. ON 10L/MIN SIMPLE FACE MASK AND PT TOLERATED WELL. PT STILL ON NPO STATUS. IV ACCESS ON DEMARCO MIDLINE INTACT AND PATENT. NO S/S OF INFILTRATIONS. NO C/O PAIN OR DISCOMFORT. NO ACUTE DISTRESS. PT ON BILATERAL SOFT WRIST RESTRAINTS. ALL SAFETY MEASURES IN PLACE. PLACE CALL LIGHT WITHIN REACH. BED IN LOWEST POSITION AND LOCKED. SIDE RAILS UP X3. BED ALARM ON. WILL CONTINUE TO MONITOR
--- NOTE | 2022-09-20 19:56 | NUR ---
MEDICATION RECONCILIATION TECHNICIAN CLOSING NOTE PT AWAKE, ALERT AND ORIENTED X 1-2. PT ON 10 L SIMPLE FACE MASK TOLERATING AT 93%.PT IS CURRENTLY NPO STATUS. NO SIGNS OF PAIN/DISCOMFORT NOTED AT THIS TIME. DEMARCO MIDLINE INTACT, PATENT AND FLUSHING WELL. PT BILATERAL SOFT WRIST RESTRAINTS. NO SKIN CIRCULATION ISSUES NOTED AT THIS TIME. ALL SAFETY MEASURES IN PLACE. CALL LIGHT WITHIN REACH. BED LOCKED AT LOWEST POSITION. SIDE RAILS UP X2. BED ALARM ON.
[2022-09-20 20:00] VITALS: BP 115/66
[2022-09-20 21:23] LABS: BAND % (MANUAL) 1 % (0.0-5.0); LYMPHOCYTES % (MANUAL) 2 % (16-48); MONOCYTES % (MANUAL) 1 % (0-11.0); NEUTROPHILS % (MANUAL) 96 (42-76)
[2022-09-20] MEDS: ATORVASTATIN 10 MG TABLET GT SCH (22:00)
[2022-09-20] MEDS: LATANOPROST EYE DROP 0.005% 2.5 ML BOTTLE EACHEYE SCH (22:38)
--- NOTE | 2022-09-20 22:55 | NUR ---
REPORT GIVEN TO PRINCESS GUILLORY.
--- NOTE | 2022-09-20 23:43 | NUR ---
SOLICITOR PATENT OPENING NOTE PT RECEIVED IN BED, AWAKE, A&O X1-2, CONFUSED. PT ON 10L SIMPLE FACE MASK WITH O2SAT OF 94%; NO S/S OF RESP DISTRESS, NO SOB OR COUGH, NON-LABORED AND EQUAL BREATHING. PT ATTACHED TO EXTERNAL MONITOR, SR WITH HR OF 93. DEMARCO MIDLINE INTACT AND PATENT, FLUSHES EASILY WITH NO RESISTANCE; NO MEDS OR FLUIDS INFUSING THROUGH IT. PT NOTED TO HAVE BILATERAL SOFT WRIST RESTRAINTS, NO SIGNS OF IMPAIRED SKIN OR CIRCULATION; WILL PROVIDE PT WITH RELEASE OF RESTRAINTS AND HYGIENE. BED IN LOWEST POSITION, CALL LIGHT WITHIN REACH, SIDE RAILS UP X3. WILL CONTINUE TO MONITOR THROUGHOUT THE NIGHT.
[2022-09-21] VITALS: BP 120/68
[2022-09-21] MEDS: IPRATROPIUM NEB FS 0.5 MG/2.5 ML AMPUL.NEB NEB SCH ×4 (01:17→20:29)
[2022-09-21] MEDS: LEVALBUTEROL HCL NEB 1.25 MG/0.5 ML VIAL.NEB NEB SCH ×4 (01:17→20:29)
[2022-09-21 04:00] VITALS: BP 123/61
--- NOTE | 2022-09-21 06:46 | NUR ---
AERONAUTICAL INSPECTOR CLOSING NOTE PT REMAINS IN BED, ASLEEP BUT EASILY AROUSABLE A&O X2, CONFUSED. CONTINUES TO BE ON 10L SIMPLE FACE MASK WITH O2SAT RANGING FROM 93%- 94%; NO S/S OF RESP DISTRESS, NO SOB OR COUGH, NON-LABORED AND EQUAL BREATHING. ATTACHED TO EXTERNAL MONITOR, SR WITH HR RANGING FROM 80- 93. DEMARCO MIDLINE INTACT AND PATENT, FLUSHES EASILY WITH NO RESISTANCE; NO MEDS OR FLUIDS INFUSING THROUGH IT. BILATERAL SOFT WRIST RESTRAINTS REMAINS IN PLACE, NO SIGNS OF IMPAIRED SKIN OR CIRCULATION; PROVIDED PT WITH RELEASE OF RESTRAINTS AND HYGIENE. BED IN LOWEST POSITION, CALL LIGHT WITHIN REACH, SIDE RAILS UP X3. WILL ENDORSE TO DAYSHIFT NURSE TO CONTINUE CARE.
[2022-09-21] MEDS: ENOXAPARIN SODIUM 80 MG/0.8 ML DISP.SYRIN SQ SCH ×2 (07:00→19:00)
--- NOTE | 2022-09-21 07:32 | NUR ---
CLOTH SHEARING SUPERVISOR OPENING NOTES: RECEIVED PATIENT IN BED ASLEEP BUT EASILY AROUSES TO VOICE AND TACTILE STIMULI. NO RESPIRATORY DISTRESS NOTED AT THIS TIME. ON OXYGEN VIA SIMPLE MASK @ 10L/MIN, NO SOB NOTED, BREATHING EVEN AND UNLABORED. PATIENT IS ALERT, ORIENTED X 2. ON SR ON TELE MONITOR WITH HR OF 87. RIGHT UPPER ARM MIDLINE IV ACCESS INTACT, PATENT, FLUSHES WELL, NO S/S INFILTRATION NOTED. NO ACTIVE BLEEDING NOTED ON PATIENT'S RIGHT ARM BUT NOTED ECCHYMOSIS. BED LOCKED AND IN LOWEST POSITION. HOB ELEVATED. ALL SAFETY MEASURES IN PLACE. CALL LIGHT WITHIN REACH. WILL CONTINUE TO MONITOR PATIENT THROUGHOUT SHIFT.
[2022-09-21] MEDS: PANTOPRAZOLE 40 MG VIAL IV SCH (07:46)
[2022-09-21 07:47] LABS: BASOPHILS % (AUTO) 0.1 % (0.0-2.0); CALCIUM, SERUM 8.6 mg/dL (8.5-10.1); HEMATOCRIT 41 % (39-51); HEMOGLOBIN 13.1 g/dL (13.5-17.5); LYMPHOCYTES # (AUTO) 0.2 K/uL (0.8-4.8); LYMPHOCYTES % (AUTO) 1.7 % (20.0-44.0); MEAN CORPUSCULAR HGB CONC 32 g/dl (31.0-36.0); MEAN CORPUSCULAR VOLUME 86 fL (80-96); MONOCYTES # (AUTO) 0.9 K/uL (0.1-1.30); MONOCYTES % (AUTO) 8.9 % (2.0-12.0); NEUTROPHILS # (AUTO) 9.2 K/uL (1.8-8.9); NEUTROPHILS % (AUTO) 89.3 % (43.0-81.0); PLATELET COUNT (AUTO) 285 K/uL (150-450); POTASSIUM 4.2 mmol/L (3.5-5.1); RED BLOOD CELL COUNT(AUTO) 4.81 MIL/uL (4.5-6.0); WHITE BLOOD COUNT (AUTO) 10.3 K/uL (4.3-11.0)
[2022-09-21] MEDS: ENSURE ENLIVE CHOC 237 ML CAN PO SCH ×2 (07:54→17:00)
[2022-09-21 08:00] VITALS: BP 121/67
[2022-09-21] MEDS: NITROGLYCERIN 30 GM TUBE TP SCH ×2 (09:00→21:41)
[2022-09-21] MEDS: FINASTERIDE (5 MG) 5 MG TABLET GT SCH (09:00)
[2022-09-21] MEDS ORDERED: HYDROXYUREA 500 MG CAPSULE PO SCH (09:00)
[2022-09-21] MEDS: ALLOPURINOL 100 MG TABLET GT SCH ×2 (09:00→12:32)
[2022-09-21] MEDS: ASPIRIN 81 MG TAB.CHEW GT SCH (09:00)
[2022-09-21] MEDS: hydrALAZINE HCL 50 MG TABLET GT SCH ×3 (09:00→17:00)
[2022-09-21] MEDS: TAMSULOSIN 0.4 MG CAP.SR.24H GT SCH (09:00)
--- NOTE | 2022-09-21 09:40 | NUR ---
SPEECH THERAPIST CAME BY AND STATED THAT THE PATIENT FAILED HER SWALLOWING EVALUATION
[2022-09-21 09:43] LABS: URIC ACID 6.3 mg/dL (2.6-7.2)
[2022-09-21] MEDS: Z GUARD REMEDY 4 OZ OINT TP SCH (10:01)
[2022-09-21] MEDS: methylPREDNISolone SOD SUCC 40 MG/ML VIAL IV SCH (10:01)
[2022-09-21] MEDS: IV D5/0.45 NACL 1,000 ML IV SCH ×2 (11:57→21:40)
[2022-09-21 12:00] VITALS: BP 124/66
--- NOTE | 2022-09-21 12:15 | NUR ---
DR SOSA CAME BY AND SAID THAT THE PATENT MAY NEED HOSPICE CARE AND WILL CONTAC THE FAMILY.
[2022-09-21 13:05] LABS: BAND % (MANUAL) 6 % (0.0-5.0); LYMPHOCYTES % (MANUAL) 4 % (16-48); METAMYELOCYTES % 1 % (0-0); MONOCYTES % (MANUAL) 6 % (0-11.0); MYELOCYTES % 1 % (0-0); NEUTROPHILS % (MANUAL) 82 (42-76)
[2022-09-21 16:00] VITALS: BP 125/73
--- NOTE | 2022-09-21 19:05 | NUR ---
ANIMAL RESEARCHER CLOSING NOTES: PATIENT IN BED AWAKE, AND IN NO RESPIRATORY DISTRESS NOTED. ON OXYGEN @ 10 L/MIN VIA MASK. ALL SAFETY MEASURES PROVIDED. ALL NEEDS MET AND ANTICIPATED. NOTED TO HAVE INTERMITTENT MINIMAL BLEEDING ON THE PATIENT'S ARM. ON IV FLUID OF D5 1/2 NS @ 100 ML/HR VIA RIGHT UPPER ARM MIDLINE, NO S/S INFILTRATION NOTED. BED LOCKED AND IN LOWEST POSITION. ALL SAFETY MEASURES IMPLEMENTED. WILL ENDORSE TO NEXT SHIFT NURSE FOR CONTINUITY OF CARE.
--- NOTE | 2022-09-21 19:36 | NUR ---
RN OPENING NOTES: RECEIVED PT IN BED, AWAKE, ALERT AND ORIENTED X 1-2 AND VERBALLY RESPONSIVE. ON 10L/MIN SIMPLE FACE MASK AND PT TOLERATED WELL. PT STILL ON NPO STATUS. IV ACCESS ON DEMARCO MIDLINE INTACT AND PATENT. NO S/S OF INFILTRATIONS. D5 1/2 NS RUNNING 100CC/HR. STILL NOTED ON AND OFF BLEEDING FROM RT HAND. APPLIED PRESSURE. NO C/O PAIN OR DISCOMFORT. NO ACUTE DISTRESS. PT ON BILATERAL SOFT WRIST RESTRAINTS. ALL SAFETY MEASURES IN PLACE. PLACE CALL LIGHT WITHIN REACH. BED IN LOWEST POSITION AND LOCKED. SIDE RAILS UP X3. BED ALARM ON. WILL CONTINUE TO MONITOR
[2022-09-21 20:00] VITALS: BP 127/78
[2022-09-21] MEDS: LATANOPROST EYE DROP 0.005% 2.5 ML BOTTLE EACHEYE SCH (21:40)
[2022-09-21] MEDS: ATORVASTATIN 10 MG TABLET GT SCH (22:00)
[2022-09-22] VITALS: BP 117/64
[2022-09-22] MEDS: IPRATROPIUM NEB FS 0.5 MG/2.5 ML AMPUL.NEB NEB SCH ×3 (02:10→12:48)
[2022-09-22] MEDS: LEVALBUTEROL HCL NEB 1.25 MG/0.5 ML VIAL.NEB NEB SCH ×3 (02:10→12:48)
[2022-09-22 04:00] VITALS: BP 138/59
[2022-09-22] MEDS: ENOXAPARIN SODIUM 80 MG/0.8 ML DISP.SYRIN SQ SCH (06:21)
--- NOTE | 2022-09-22 06:22 | NUR ---
RN CLOSING NOTES: PT IN BED, AWAKE, ALERT AND ORIENTED X 1-2 AND VERBALLY RESPONSIVE. ON 10L/MIN SIMPLE FACE MASK AND PT TOLERATED WELL. STILL ON NPO STATUS. NOSIGNIFICANT CHANGES DURING THIS SHIFT. IV ACCESS ON DEMARCO MIDLINE INTACT AND PATENT. NO S/S OF INFILTRATIONS. D5 1/2 NS RUNNING 100CC/HR. NOTED ON AND OFF BLEEDING FROM RT HAND. HOLD LOVENOX. NO C/O PAIN OR DISCOMFORT. NO ACUTE DISTRESS. PT ON BILATERAL SOFT WRIST RESTRAINTS. RELEASED Q 2 HOURS TO CHECK CIRCULATION. ALL SAFETY MEASURES IN PLACE. PLACE CALL LIGHT WITHIN REACH. BED IN LOWEST POSITION AND LOCKED. SIDE RAILS UP X3. BED ALARM ON. WILL ENDORSE TO MORNING SHIFT NURSE.
[2022-09-22 06:24] LABS: BASOPHILS % (AUTO) 0.1 % (0.0-2.0); EOSINOPHILS % (AUTO) 0.1 % (0.0-6.0); HEMATOCRIT 37 % (39-51); HEMOGLOBIN 11.8 g/dL (13.5-17.5); LYMPHOCYTES # (AUTO) 0.3 K/uL (0.8-4.8); LYMPHOCYTES % (AUTO) 1.9 % (20.0-44.0); MEAN CORPUSCULAR HGB CONC 32 g/dl (31.0-36.0); MEAN CORPUSCULAR VOLUME 86 fL (80-96); MONOCYTES # (AUTO) 1.1 K/uL (0.1-1.30); MONOCYTES % (AUTO) 7.3 % (2.0-12.0); NEUTROPHILS # (AUTO) 13.3 K/uL (1.8-8.9); NEUTROPHILS % (AUTO) 90.6 % (43.0-81.0); PLATELET COUNT (AUTO) 270 K/uL (150-450); RED BLOOD CELL COUNT(AUTO) 4.29 MIL/uL (4.5-6.0); WHITE BLOOD COUNT (AUTO) 14.7 K/uL (4.3-11.0)
[2022-09-22 06:33] LABS: CALCIUM, SERUM 8.6 mg/dL (8.5-10.1); CARBON DIOXIDE 37 mmol/L (21-32); CHLORIDE 119 mmol/L (98-107); CREATININE 0.9 mg/dL (0.6-1.3); GLUCOSE 154 mg/dL (74-106); POTASSIUM 3.6 mmol/L (3.5-5.1); UREA NITROGEN, BLOOD 37 mg/dL (7-18)
[2022-09-22 06:35] LABS: URIC ACID 5.8 mg/dL (2.6-7.2)
[2022-09-22 06:43] LABS: SODIUM SERUM 156 mmol/L (136-145)
--- NOTE | 2022-09-22 06:45 | NUR ---
RN NOTES: RECEIVED CRITICAL LAB, SODIUM LEVEL 156. NOTIFIED DR. MARTINEZ. WILL CONTINUE TO MONITOR
[2022-09-22] MEDS: IV D5/0.45 NACL 1,000 ML IV SCH (07:30)
[2022-09-22] MEDS: PANTOPRAZOLE 40 MG VIAL IV SCH (07:33)
[2022-09-22] MEDS: ENSURE ENLIVE CHOC 237 ML CAN PO SCH (07:42)
--- NOTE | 2022-09-22 07:52 | NUR ---
telephone station repairer opening note received pt in bed.pt alert and oriented x1-2..pt is on 10 L simple face mask saturating at 92%. no signs of pain or discomfort at this time. PT HAS R UA MIDLINE.INTACT, IN PLACE AND FLUSHING WELL. pt has skin discoloration on right forearm. PT ON BILATERAL SOFT WRIST RESTRAINTS. NO SKIN CIRCULATION ISSUES NOTED AT THIS TIME. ALL SAFETY MEASURES IN PLACE. CALL LIGHT WITHIN REACH.BED LOCKED AT LOWEST POSITION. BED ALARM ON, SIDE RAILS UP X2.
[2022-09-22 08:00] VITALS: BP 136/62
[2022-09-22] MEDS: ASPIRIN 81 MG TAB.CHEW GT SCH (08:21)
[2022-09-22] MEDS: FINASTERIDE (5 MG) 5 MG TABLET GT SCH (08:22)
[2022-09-22] MEDS: TAMSULOSIN 0.4 MG CAP.SR.24H GT SCH (08:22)
[2022-09-22] MEDS: hydrALAZINE HCL 50 MG TABLET GT SCH ×2 (09:00→13:00)
[2022-09-22] MEDS: methylPREDNISolone SOD SUCC 40 MG/ML VIAL IV SCH (09:13)
[2022-09-22] MEDS: NITROGLYCERIN 30 GM TUBE TP SCH (09:16)
[2022-09-22 09:51] LABS: BAND % (MANUAL) 2 % (0.0-5.0); LYMPHOCYTES % (MANUAL) 3 % (16-48); NEUTROPHILS % (MANUAL) 87 (42-76)
[2022-09-22 09:52] LABS: METAMYELOCYTES % 1 % (0-0); MONOCYTES % (MANUAL) 7 % (0-11.0)
--- NOTE | 2022-09-22 10:00 | NUR ---
rn note spoke with son Kimberly. wants lovenox to be stopped due to bleeding and brusing on arm and patient will be on hospice
[2022-09-22 12:00] VITALS: BP 111/49
[2022-09-22 13:00] VITALS: BP 111/49
[2022-09-22] MEDS: Z GUARD REMEDY 4 OZ OINT TP SCH (15:22)
--- NOTE | 2022-09-22 16:40 | NUR ---
rn note patient discharged. gave report to EMT. patient stable condition. returned pt belongings.discharged home with hospice
--- NOTE | 2022-09-22 16:51 | NUR ---
rn note patient discharged. gave report to EMT. patient stable condition. received call from patient son that belongings were sent. 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 Addendum: 09/22/22 at 1803 by SLY CATHERINE RN pt belongings returned to family member and tele box was returned
--- NOTE | 2022-09-22 18:10 | NUR ---
rn note patient discharged. gave report to EMT. patient stable condition. received call from patient son that belongings were not sent. 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
== END 2022-09-22 16:39 | disposition hospice, home (50) | DRG 280 ==
LOC: ER 11:20 → ICU 13:18 → TELE1 09-14 13:26
PROVIDERS: ADMIT Nurse Practitioner Family; ATTEND Nurse Practitioner Acute Care
PROC: 05HC33Z Insertion of Infusion Device into Left Basilic Vein, Percutaneous Approach (ICD-10-PCS; principal; 2022-09-13)
PROC: 05HB33Z Insertion of Infusion Device into Right Basilic Vein, Percutaneous Approach (ICD-10-PCS; 2022-09-13)
DX: I11.0 Hypertensive heart disease with heart failure (principal); G92.8 Other toxic encephalopathy; I21.4 Non-ST elevation (NSTEMI) myocardial infarction; I26.99 Other pulmonary embolism without acute cor pulmonale; J96.21 Acute and chronic respiratory failure with hypoxia; I50.23 Acute on chronic systolic (congestive) heart failure; I63.9 Cerebral infarction, unspecified; J44.1 Chronic obstructive pulmonary disease with (acute) exacerbation; E44.1 Mild protein-calorie malnutrition; D47.1 Chronic myeloproliferative disease; E87.0 Hyperosmolality and hypernatremia; J98.11 Atelectasis; Z20.822 Contact with and (suspected) exposure to COVID-19; Z66 Do not resuscitate; E88.09 Other disorders of plasma-protein metabolism, not elsewhere classified; F03.90 Unspecified dementia, unspecified severity, without behavioral disturbance, psychotic disturbance, mood disturbance, and anxiety; Z86.711 Personal history of pulmonary embolism; Z86.718 Personal history of other venous thrombosis and embolism; N40.0 Benign prostatic hyperplasia without lower urinary tract symptoms; Z85.51 Personal history of malignant neoplasm of bladder; Z79.01 Long term (current) use of anticoagulants; Z92.21 Personal history of antineoplastic chemotherapy; Z87.891 Personal history of nicotine dependence; Z79.899 Other long term (current) drug therapy; D45 Polycythemia vera; I25.10 Atherosclerotic heart disease of native coronary artery without angina pectoris; E78.5 Hyperlipidemia, unspecified; D32.9 Benign neoplasm of meninges, unspecified; G93.89 Other specified disorders of brain; K80.20 Calculus of gallbladder without cholecystitis without obstruction
CPT/HCPCS: 36410; 36415; 36600; 70450-TC; 70551-TC; 71045-TC; 80048-TC; 80053-TC; 80061-TC; 80076-TC; 82378; 82728-TC; 82803-TC; 83540-TC; 83735-TC; 83880; 84100-TC; 84443-TC; 84484-TC; 84550-TC; 85025-TC; 85378-TC; 87081-TC; 92526; 92611-TC; 93307-TC; 93970-TC; 94760-TC; 94799-TC; 99082-TC; A6253; C9113; G0378; J1650; J1940; J2060; J2920; J2930; J3475; J3490; J7050; J7060; J7070; Q9967